=== PATIENT | female | born 1945 | race Caucasian/White ===

== ENCOUNTER → 2020-03-19 09:23 | Outpatient (CLI) | payer MEDICARE, SELFPAY ==
--- NOTE | ~2020-03-19 | DEXA_ITS ---
Bone Density Report Name: Abdelrahman Cochran Age: 74 Sex: Female Ethnicity: White Date of : 1945 Indication: postmenopausal; screening for osteoporosis; parental hip fracture; hysterectomy; Referring Provider: Roseann, Giovana Jalloh Study: Bone densitometry was performed. Exam Date: March 19, 2020 Accession number: [id number] Bone Density: Region BMD T-score Z-score Classification AP Spine (L1-L4) 1.143 0.9 3.3 Normal Femoral Neck (Left) 0.736 -1.0 1.1 Normal Total Hip (Left) 0.880 -0.5 1.3 Normal Femoral Neck (Right) 0.696 -1.4 0.7 Osteopenia Total Hip (Right) 0.843 -0.8 1.0 Normal Total Hip Mean 0.862 -0.7 1.2 Normal World Health Organization criteria for BMD impression classify patients as: Normal (T-score at or above -1.0), Osteopenia (T-score between -1.0 and -2.5), or Osteoporosis (T-score at or below -2.5). 10-year Fracture Risk(1): Major Osteoporotic Fracture 18% Hip Fracture 8.5% Reported Risk Factors: [place] (), Neck BMD=0.696, BMI=31.8, parental fracture (1) FRAX(R) Version 3.08. Fracture probability calculated for an untreated patient. Fracture probability may be lower if the patient has received treatment. Previous Exams: Region Exam Age BMD T-score BMD Change BMD Change Date g/cm2 vs Baseline vs Previous AP Spine(L1-L4) 03/19/2020 74 1.143 0.9 0.056 -0.031* 09/01/2017 71 1.175 1.2 0.087 0.046* 06/29/2014 68 1.129 0.7 0.042 0.016 05/03/2012 66 1.113 0.6 0.026 0.009 03/29/2010 64 1.104 0.5 0.017 0.036* 02/02/2008 62 1.068 0.2 -0.020 0.034* 01/28/2006 60 1.034 -0.1 -0.054 -0.054 01/15/2004 58 1.088 0.4 Total Hip(Left) 03/19/2020 74 0.880 -0.5 -0.072 -0.069* 09/01/2017 71 0.948 0.1 -0.003 -0.016 06/29/2014 68 0.964 0.2 0.013 0.007 05/03/2012 66 0.957 0.1 0.006 0.002 03/29/2010 64 0.955 0.1 0.004 0.020 02/02/2008 62 0.935 -0.1 -0.017 -0.020 01/28/2006 60 0.955 0.1 0.003 0.003 01/15/2004 58 0.952 0.1 Total Hip(Right) 03/19/2020 74 0.843 -0.8 -0.058 -0.032* 09/01/2017 71 0.875 -0.5 -0.026 -0.038* 06/29/2014 68 0.913 -0.2 0.012 0.013 05/03/2012 66 0.900 -0.3 -0.002 -0.029* 03/29/2010 64 0.929 -0.1 0.027 0.024 02/02/2008 62 0.904 -0.3 0.00
--- NOTE | ~2020-03-19 | MM_ITS ---
EXAMINATION: MM screening [facility] BI w erlin HISTORY: Screening mammogram TECHNIQUE: Craniocaudal and mediolateral oblique 3-D tomosynthesis images were obtained and synthetic 2-D images were generated. CAD analysis was submitted and interpreted. COMPARISON: 02/10/2018, 12/09/2016, 06/17/2016, 06/06/2016 BREAST PARENCHYMAL COMPOSITION: There are scattered areas of fibroglandular density. FINDINGS: There is no evidence of suspicious mass, calcification, or architectural distortion to sugg est malignancy in either breast. There has been no suspicious interval change. IMPRESSION: 1. No mammographic evidence of malignancy. 2. Recommend routine screening mammography in one year. BI-RADS Category 1: Negative Reviewed, dictated and finalized at location A.
== END ==
PROVIDERS: PCP Family Medicine; Visit Provider Nurse Practitioner Obstetrics & Gynecology
DX: Z12.31 Encounter for screening mammogram for malignant neoplasm of breast (principal); Z78.0 Asymptomatic menopausal state; M85.851 Other specified disorders of bone density and structure, right thigh
CPT/HCPCS: 77063; 77067; 77080

== ENCOUNTER 2020-07-27 09:27 | Emergency (ER) | payer MEDICARE, SELFPAY ==
--- NOTE | ~2020-07-27 | XR_ITS ---
EXAMINATION: XR chest 2V EXAM DATE: 07/27/2020 10:29 INDICATION: Cough and shortness of breath. COVID 19 positive. TECHNIQUE: Frontal and lateral projections of the chest obtained and reviewed. Comparison is made to prior examination from 11/04/2007. FINDINGS: There is moderate amount of bilateral mid and lower lung zone acute airspace disease, appea arabella is consistent with COVID pneumonia which is most likely diagnosis given history provided. There is no pneumothorax suspected. There are no pleural effusions. Cardiomediastinal silhouette is normal . IMPRESSION: Moderate amount of basilar COVID pneumonia. Reviewed, dictated and finalized at location B. E FILER
--- NOTE | 2020-07-27 09:30 | ED.GENADULT ---
HPI - General Adult General Chief complaint: Upper Respiratory Infection Stated complaint: Cough Time Seen by Provider: 07/27/20 09:30 Source: patient Mode of arrival: ambulatory Limitations: no limitations History of Present Illness HPI narrative: 74-year-old female patient presents to the [facility] with complaints of cold symptoms for the past 5 days. Patient states that she was exposed to Covid almost a week ago. Patient states she has not had a Covid test since being exposed. Patient states she has had a dry cough with some shortness of breath, some fatigue, and just overall not feeling well. Denies any fevers, body aches or chills. Patient states she did get a flu vaccine this season. Denies getting any cold vaccines yet. Patient states that she did call her doctor about her symptoms however they prescribed her a Z-Klever. Patient states that it caused her to have diarrhea so she stopped the Z-Klever and did not complete it. Patient states she has been taking cough drops for her cough but denies any other [id number] medications. Related Data Home Medications Medication Instructions Recorded Confirmed atorvastatin 10 mg PO DAILY 07/27/20 07/27/20 hydrochlorothiazide 25 mg PO DAILY 07/27/20 07/27/20 lisinopril 40 mg PO DAILY 07/27/20 07/27/20 meloxicam 7.5 mg PO DAILY 07/27/20 07/27/20 omeprazole 40 mg PO DAILY 07/27/20 07/27/20 Allergies Allergy/AdvReac Type Severity Reaction Status Date / Time ampicillin Allergy Severe CHEST Verified 07/27/20 09:39 PRESSURE Penicillins Allergy Severe DIAHRREA Verified 07/27/20 09:39 Review of Systems Review of Systems: Narrative: CONSTITUTIONAL: Denies fever, chills, or sweats. EYES: Denies visual changes, redness, or discharge. ENT: Denies rhinorrhea, congestion, sore throat, or otalgia. CARDIOVASCULAR: Denies chest pain, palpitations, or edema. RESPIRATORY: Positive cough with dyspnea. GASTROINTESTINAL: Denies abdominal pain, nausea, vomiting, or diarrhea. GENITOURINARY: Denies dysuria or hematuria. SKIN: Denies rash or itching. MUSCULOSKELETAL: Denies back pain, joint pain, or myalgia. NEUROLOGIC: Denies headache, numbness, or weakness. Positive fatigue PSYCHIATRIC: Denies anxiety or depression. [facility] Past Medical History Medical History (Updated 07/27/20 @ 10:52 by CK Eller) Arthritis GERD (gastroesophageal reflux disease) Hypercholesterolemia Hypertension Osteoporosis Seasonal allergies Surgical History Surgical History (Updated 07/27/20 @ 09:31 by CK Eller) History of appendectomy History of hysterectomy Hx of cholecystectomy Hx of tonsillectomy Social History Social History (Updated 07/27/20 @ 09:31 by CK Eller) Smoking status: Former smoker Gender identity (if verbalized by the patient): Female Comments At the time of my signature I agree with nursing past medical history, surgical, social, and family history. There is no relevant family history pertinent to the presenting complaint. Exam Narrative: Exam Narrative: GENERAL: Well-appearing, well-nourished, and in no acute distress. HEAD: Normocephalic, atraumatic. EYES: PERRLA and EOMI. ENT: Nares clear, no rhinorrhea or epistaxis. Mucous membranes moist. Bilateral TMs are clear no erythema or foreign bodies in the canal. NECK: Supple. No lymphadenopathy CHEST: Clear to auscultation. No respiratory distress. Patient able talk in clear complete sentences. HEART: Regular rate and rhythm. No murmur heard. Normal peripheral pulses. ABDOMEN: Soft, nontender, nondistended, normal active bowel sounds. EXTREMITIES: Normal range of motion. No edema. SKIN: Warm, dry, no rash. NEURO: No focal deficits. Alert and oriented x3. Course Reevaluation(s) Reevaluation #1: Reevaluated patient. Notified her that her Covid test is positive today for flu is negative. Her x-ray does show possible Covid pneumonia bilaterally. Discussed with patient that her plan of care
[2020-07-27 10:03] VITALS: BP 143/74; PULSE 86; RESP 20; TEMP 36.8; O2SAT 94
== END 2020-07-27 11:00 | disposition home or self-care (01) ==
PROVIDERS: Emergency Provider Nurse Practitioner Family; PCP Family Medicine
DX: U07.1 COVID-19 (principal); K21.9 Gastro-esophageal reflux disease without esophagitis; E78.00 Pure hypercholesterolemia, unspecified; I10 Essential (primary) hypertension; M81.0 Age-related osteoporosis without current pathological fracture; Z87.891 Personal history of nicotine dependence; M19.90 Unspecified osteoarthritis, unspecified site
CPT/HCPCS: 71046; 87426; 87804; 99213; C9803; G0463

== ENCOUNTER 2020-07-27 16:56 | Emergency (ER) | payer MEDICARE, SELFPAY ==
--- NOTE | ~2020-07-27 | XR_ITS ---
XR chest 1V portable 07/27/2020 18:28 Indication: Cough and body aches. Shortness of breath. Procedure: AP portable chest Comparison: Comparison to multiple prior studies sequentially, with oldest reviewed study dated 11/03. Findings: Patchy bilateral airspace disease, compatible with pneumonia. No pleural effusion or pneumo thorax. Heart size normal. No acute osseous abnormality. Impression: 1: Patchy bilateral airspace disease, compatible with pneumonia. Reviewed, dictated and finalized at location A. ERY STRIPER Impression: 1: Patchy bilateral airspace disease, compatible with pneumonia.
--- NOTE | ~2020-07-27 | NM_ITS ---
NM pulmonary perfusion INDICATION: Elevated d-dimer and shortness of breath TECHNIQUE: The patient inhaled aerosolized 4.4 mCi xenon-133. Multiple images were then acquired. COMPARISON: Chest x-ray dated 07/27/2020 FINDINGS: Comparison chest radiograph demonstrates patchy airspace disease of the mid and lower lungs , consistent with pneumonia. Perfusion images demonstrate no-moderate perfusion abnormalities of the mid and lower lungs corresponding to the areas of chest x-ray abnormality. IMPRESSION: 1: Small-moderate perfusion abnormalities of the mid and lower lungs corresponding to findings on [address] x-ray. Reviewed, dictated and finalized at location A. CAL RECEPTION IMPRESSION: 1: Small-moderate perfusion abnormalities of the mid and lower lungs correspond ing to findings on chest x-ray.
[2020-07-27 17:00] VITALS: BP 153/56; PULSE 92; RESP 18; TEMP 36.9; O2SAT 95
[2020-07-27 17:47] VITALS: O2SAT 94
--- NOTE | 2020-07-27 18:27 | PC.NURSE ---
Pt ambulated to restroom. Spo2 95% on room air
[2020-07-27 18:56] LABS: Hematocrit 29.2 % (37.0-47.0); Hemoglobin 9.9 g/dL (12.0-15.0); Mean Corpuscular HGB Conc 33.9 g/dl (32-36); Mean Corpuscular Hemoglobin 29.6 pg (26-34); Mean Corpuscular Volume 87.2 fl (80-100); Mean Platelet Volume 10.1 fl (7.4-10.4); Platelet Count Result 362 k/mm3 (150-375); Red Blood Count 3.35 M/mm3 (4.2-5.4); Red Cell Distribution Width 12.9 % (11.5-14.5); White Blood Count 4.2 K/mm3 (4.5-10.0)
[2020-07-27 19:00] VITALS: BP 154/88; PULSE 84; RESP 20; O2SAT 94
[2020-07-27 19:07] LABS: Alanine Aminotransferase 21 U/L (4-35); Albumin Level 3.9 g/dL (3.5-5.1); Alkaline Phosphatase 69 U/L (38-126); Anion Gap 10 mmol/L (8-16); Aspartate Amino Transferase 62 U/L (14-36); Bilirubin,Total 0.6 mg/dL (0.2-1.3); Blood Urea Nitrogen 44 mg/dL (7-17); Calcium 8.6 mg/dL (8.4-10.2); Carbon Dioxide 25 mmol/L (22-30); Chloride 93 mmol/L (98-107); Estimated CRCL calculation 25 ml/min; Estimated Glomerular Filt Rate 31; Glucose 149 mg/dL (65-105); Potassium 4.1 mmol/L (3.4-5.0); Sodium 128 mmol/L (137-145)
[2020-07-27 19:25] LABS: Band Neutrophils Percent 14 % (0-6); Lymphocytes Absolute Manual 0.08 K/mm3 (1.1-4.5); Monocytes Absolute Manual 0.08 K/mm3 (0.1-0.90); Monocytes Percent Manual 2 % (3-9); Neutrophils Absolute Manual 4.03 K/mm3 (1.7-7.2); Neutrophils Percent Manual 82 % (46-73); Total Cells Counted 100
[2020-07-27 19:26] LABS: Platelet Estimate Adequate (Adequate)
[2020-07-27 19:31] LABS: D Dimer 3.98 ug/mL (<0.48)
[2020-07-27 20:18] VITALS: BP 167/50; PULSE 87; RESP 18; O2SAT 96
--- NOTE | 2020-07-27 21:05 | ED.GENADULT ---
HPI - General Adult General Chief complaint: Upper Respiratory Infection Stated complaint: Covid+ weakness Time Seen by Provider: 07/27/20 17:31 Source: patient Mode of arrival: ambulatory Limitations: no limitations History of Present Illness HPI narrative: Patient presents with chief complaint of testing Covid positive today. Patient states that she has had symptoms for 3 days. Patient states originally she had fever and diarrhea, but that has resolved and she now does have some fatigue. She states her family member came over and put a pulse ox on her finger and it read in the 80s so they told her she had to come to the ER and be checked out. She states she has mild SOB with exertion, but nothing significant. She states she occasionally has coughing fits and that makes her feel short of breath. She denies chest pain. States she has been able to eat and drink normally. She denies any other concerns. Related Data Home Medications Medication Instructions Recorded Confirmed atorvastatin 10 mg PO DAILY 07/27/20 07/27/20 hydrochlorothiazide 25 mg PO DAILY 07/27/20 07/27/20 lisinopril 40 mg PO DAILY 07/27/20 07/27/20 meloxicam 7.5 mg PO DAILY 07/27/20 07/27/20 omeprazole 40 mg PO DAILY 07/27/20 07/27/20 Allergies Allergy/AdvReac Type Severity Reaction Status Date / Time ampicillin AdvReac Severe CHEST Verified 07/27/20 17:05 PRESSURE Penicillins AdvReac Severe DIAHRREA Verified 07/27/20 17:05 Review of Systems Review of Systems: Narrative: CONSTITUTIONAL: Denies fever, chills, or sweats. EYES: Denies visual changes, redness, or discharge. ENT: Denies rhinorrhea, congestion, sore throat, or otalgia. CARDIOVASCULAR: Denies chest pain, palpitations, or edema. RESPIRATORY: Reports occasional coughing fits and very minimal dyspnea GASTROINTESTINAL: Denies abdominal pain, nausea, vomiting, or diarrhea. GENITOURINARY: Denies dysuria or hematuria. SKIN: Denies rash or itching. MUSCULOSKELETAL: Denies back pain, joint pain, or myalgia. NEUROLOGIC: Denies headache, numbness, dizziness, or weakness. PSYCHIATRIC: Denies anxiety or depression. [facility] Past Medical History Medical History (Updated 07/27/20 @ 21:16 by Rodrigue Matthew PA-C) Arthritis GERD (gastroesophageal reflux disease) Hypercholesterolemia Hypertension Osteoporosis Seasonal allergies Surgical History Surgical History (Updated 07/27/20 @ 09:31 by CK Eller) History of appendectomy History of hysterectomy Hx of cholecystectomy Hx of tonsillectomy Social History Social History (Updated 07/27/20 @ 09:31 by CK Eller) Smoking status: Former smoker Gender identity (if verbalized by the patient): Male Exam Narrative: Exam Narrative: GENERAL: Well-appearing, well-nourished, and in no acute distress. HEAD: Normocephalic, atraumatic. EYES: PERRLA and EOMI. ENT: Bilateral TMs pearly dash nonbulging NECK: Supple. No adenopathy or masses. CHEST: Clear to auscultation. No respiratory distress. No wheezes rales or rhonchi. No tachypnea. HEART: Regular rate and rhythm. ABDOMEN: Soft, nontender, nondistended, normal active bowel sounds. EXTREMITIES: Normal range of motion. No edema. SKIN: Warm, dry, no rash. NEURO: No focal deficits. Alert and oriented x3. PSYCH: Normal mood and affect. Course Vital Signs Vital signs: Vital Signs Temperature 98.4 F 07/27/20 17:00 Pulse Rate 92 07/27/20 17:00 Respiratory Rate 18 07/27/20 17:00 Blood Pressure 153/56 H 07/27/20 17:00 Pulse Oximetry 95 07/27/20 17:00 Temperature 98.4 F 07/27/20 17:00 Pulse Rate 87 07/27/20 20:18 Respiratory Rate 18 07/27/20 20:18 Blood Pressure 167/50 H 07/27/20 20:18 Pulse Oximetry 96 07/27/20 20:18 Medical Decision Making MDM Narrative Medical decision making narrative: Patient has been sinus rhythm on the monitor. She has maintained o2 sat above 95% during her stay. She did not desat while ambulating and was able to w
== END 2020-07-27 22:08 | disposition home or self-care (01) ==
PROVIDERS: Physician Assistant; Emergency Provider Emergency Medicine; PCP Family Medicine
DX: U07.1 COVID-19 (principal); M19.90 Unspecified osteoarthritis, unspecified site; E78.00 Pure hypercholesterolemia, unspecified; I10 Essential (primary) hypertension; M81.0 Age-related osteoporosis without current pathological fracture; Z87.891 Personal history of nicotine dependence; R91.8 Other nonspecific abnormal finding of lung field
CPT/HCPCS: 36415; 71045; 71046; 78580; 80053; 85025; 85380; 87426; 87804; 99283; A9540; C9803

== ENCOUNTER 2023-05-28 09:35 | Outpatient (CLI) | payer MEDICARE, OTHER, SELFPAY ==
--- NOTE | 2023-05-28 | ECHO_ITS ---
Patient Info Name: Abdelrahman Cochran Age: 77 years : 1945 Gender: Female Ht: 61 in Wt: 157 lbs BSA: 1.78 m2 HR: 79 bpm BP: 175 / 63 mmHg Technical Quality: Fair Exam Date: 05/28/2023 9:55 AM Exam Location: Echo Lab Patient Status: Outpatient Admit Date: 05/28/2023 Staff Ordering Physician: Eli, Roxana Alfaro MD Solar Manufacturer'S Representative: Phyllis Fairbanks RDCS Attending Provider: Eli, Roxana Alfaro MD Referring Physician: Eli NESS; Exam Type: CA echo doppler color flow Study Info Indications R06.09 - Other forms of dyspnea Complete two-dimensional, color flow and Doppler transthoracic echocardiogram is performed. Summary 1. Complete two-dimensional, color flow and Doppler transthoracic echocardiogram is performed. 2. Left ventricular chamber dimension is normal. 3. Left ventricular systolic function is normal, estimated at 65-70%. 4. There is mildly increased left ventricular wall thickness. 5. The left ventricular diastolic function is grade I diastolic dysfunction. 6. Right ventricular systolic function is normal. 7. Left atrial chamber dimension is moderately enlarged. 8. The atrial septum is aneurysmal. 9. There is mild to moderate aortic valve regurgitation. 10. Dilated inferior vena cava with >50% collapse upon inspiration consistent with elevated right atrial pressure, 8 mmHg. Left Ventricle Left ventricular chamber dimension is normal. Left ventricular systolic function is normal, estimated at 65-70%. There is mildly increased left ventricular wall thickness. The left ventricular diastolic function is grade I diastolic dysfunction. Right Ventricle Right ventricular chamber dimension is normal. Right ventricular systolic function is normal. Left Atria Left atrial chamber dimension is moderately enlarged. Right Atria Right atrial chamber dimension is normal. Atrial Septum The atrial septum is aneurysmal. Aortic Valve The aortic valve is trileaflet. There is no aortic valve stenosis. There is mild to moderate aortic valve regurgitation. There is mild aortic valve calcification. Pulmonic Valve The pulmonic valve is not well visualized. Mitral Valve There is trace mitral valve regurgitation. Tricuspid Valve There is trace tricuspid valve regurgitation. Pericardium/Pleural There is no pericardial effusion. Inferior Vena Cava Dilated inferior vena cava with >50% collapse upon inspiration consistent with elevated right atrial pressure, 8 mmHg. Aorta The aortic root size at the sinus of Valsalva is normal. Left Ventricular Outflow Tract Name Value Normal LVOT 2D LVOT Diameter 1.9 cm LVOT Doppler LVOT Peak Gradient 5 mmHg LVOT Mean Gradient 3 mmHg LVOT VTI 29 cm LVOT VTI/AV VTI Ratio 0.7 LVOT Stroke Volume 78 ml LVOT CO 3.6 l/min LVOT CI 2.0 l/min/m2 Pulmonic Valve Name Value Normal
== END 2023-05-28 09:36 | disposition home or self-care (01) ==
PROVIDERS: PCP Family Medicine; Visit Provider Family Medicine
DX: I35.1 Nonrheumatic aortic (valve) insufficiency (principal); I51.7 Cardiomegaly; R93.1 Abnormal findings on diagnostic imaging of heart and coronary circulation
CPT/HCPCS: 93306

== ENCOUNTER → 2023-06-24 10:22 | Outpatient (CLI) | payer MEDICARE, OTHER, SELFPAY ==
--- NOTE | ~2023-06-24 | MM_ITS ---
EXAMINATION: MM screening [facility] BI w erlin HISTORY: Screening mammogram TECHNIQUE: Craniocaudal and mediolateral oblique 3-D tomosynthesis images were obtained and synthetic 2-D images were generated. CAD analysis was submitted and interpreted. COMPARISON: 03/19/2020, 02/10/2018 BREAST PARENCHYMAL COMPOSITION: There are scattered areas of fibroglandular density. FINDINGS: No suspicious mass, calcification, or architectural distortion are identified in either diamond ast to suggest malignancy. There has been no suspicious interval change. IMPRESSION: 1. No mammographic evidence of malignancy. 2. Recommend routine screening mammography in one year. BI-RADS Category 1: Negative Reviewed, dictated and finalized at location A. IAC/VASCULAR SONOGRAPHER
--- NOTE | ~2023-06-24 | DEXA_ITS ---
Bone Density Report Name: MARGOTH ELLER Age: 77 Sex: Female Ethnicity: White Date of : 1945 Indication: postmenopausal; screening for osteoporosis; parental hip fracture; height loss; hysterectomy; Referring Provider: SUZANNE, MOIRA Alfaro Study: Bone densitometry was performed. Exam Date: June 24, 2023 Accession number: [id number] Bone Density: Region BMD T-score Z-score Classification AP Spine (L1-L4) 1.135 0.8 3.4 Normal Femoral Neck (Left) 0.676 -1.6 0.7 Osteopenia Total Hip (Left) 0.865 -0.6 1.4 Normal Femoral Neck (Right) 0.772 -0.7 1.6 Normal Total Hip (Right) 0.822 -1.0 1.0 Normal Total Hip Mean 0.844 -0.8 1.2 Normal World Health Organization criteria for BMD impression classify patients as: Normal (T-score at or above -1.0), Osteopenia (T-score between -1.0 and -2.5), or Osteoporosis (T-score at or below -2.5). 10-year Fracture Risk(1): Major Osteoporotic Fracture 22% Hip Fracture 12% Reported Risk Factors: [place] (), Neck BMD=0.676, BMI=31.4, parental fracture (1) FRAX(R) Version 3.08. Fracture probability calculated for an untreated patient. Fracture probability may be lower if the patient has received treatment. Previous Exams: Region Exam Age BMD T-score BMD Change BMD Change Date g/cm2 vs Baseline vs Previous AP Spine(L1-L4) 06/24/2023 77 1.135 0.8 0.047 -0.009 03/19/2020 74 1.143 0.9 0.056 -0.031* 09/01/2017 71 1.175 1.2 0.087 0.046* 06/29/2014 68 1.129 0.7 0.042 0.016 05/03/2012 66 1.113 0.6 0.026 0.009 03/29/2010 64 1.104 0.5 0.017 0.036* 02/02/2008 62 1.068 0.2 -0.020 0.034* 01/28/2006 60 1.034 -0.1 -0.054 -0.054 01/15/2004 58 1.088 0.4 Total Hip(Left) 06/24/2023 77 0.865 -0.6 -0.087 -0.015 03/19/2020 74 0.880 -0.5 -0.072 -0.069* 09/01/2017 71 0.948 0.1 -0.003 -0.016 06/29/2014 68 0.964 0.2 0.013 0.007 05/03/2012 66 0.957 0.1 0.006 0.002 03/29/2010 64 0.955 0.1 0.004 0.020 02/02/2008 62 0.935 -0.1 -0.017 -0.020 01/28/2006 60 0.955 0.1 0.003 0.003 01/15/2004 58 0.952 0.1 Total Hip(Right) 06/24/2023 77 0.822 -1.0 -0.080 -0.021 03/19/2020 74 0.843 -0.8 -0.058 -0.032* 09/01/2017 71 0.875 -0.5 -0.026 -0.038* 06/29/2014 68 0.913 -0.2
== END ==
PROVIDERS: PCP Family Medicine; Visit Provider Family Medicine
DX: Z12.31 Encounter for screening mammogram for malignant neoplasm of breast (principal); M85.88 Other specified disorders of bone density and structure, other site; Z78.0 Asymptomatic menopausal state
CPT/HCPCS: 77063; 77067; 77080

== ENCOUNTER 2025-03-17 14:07 | Outpatient (CLI) | payer MEDICARE, OTHER, SELFPAY ==
--- OUTSIDE RECORDS SUMMARY | 2025-03-17 14:15 | XMS_ITS | Clinical Summary ---
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 Gender Identity Not on file Sexual Orientation Not on file Plan of Treatment Health Maintenance Due Date Last Done Comments Hepatitis C Virus (HCV) Screening 1945 TdaP Immunization 1945 Zoster Immunization (1 of 2) 1994 Pneumococcal Immunization (50+ years) (2 of 2 - PCV20 or PCV21) 03/21/2016 03/21/2015 Respiratory Syncytial Virus (RSV) Immunization (Adult) (1 - 1-dose 75+ series) 09/07/2019 SARS-COV-2 Immunization ( - season) 2024 03/25/2021, 08/31/2020, 08/10/2020 Influenza Immunization (#1) 02/20/202501/20, 03/04/2019, 03/08/2018, Additional history exists Pneumococcal Immunization Combined Discontinued 03/21/2015 Hepatitis B Immunization Aged Out No longer eligible based on patient's age to complete this topic Human Papillomavirus (HPV) Immunization Aged Out No longer eligible based on patient's age to complete this topic Meningococcal Immunization (ACWY) Aged Out No longer eligible based on patient's age to complete this topic Rotavirus Immunization Aged Out No lo nger eligible based on patient's age to complete this topic
--- OUTSIDE RECORDS SUMMARY | 2025-03-17 14:15 | XMS_ITS | Clinical Summary ---
Author Organization [facility] Address [facility] [place] [address] Care Team Providers Care Unix Administrator Name Role Phone Jeanine Ochoa Angelina MYERS Primary Care Provider + [phone] Allergies Active Allergy Reactions Criticality Noted Date Comments Ampicillin Diarrhea 12/08/2024 Penicillins Anaphylaxis High 12/08/2024 Medications solifenacin (VESICARE) 5 MG tablet Take 1 tablet (5 mg total) by mouth 2 (two) times a day. Active meloxicam (MOBIC) 15 MG tablet Take 1 tablet (15 mg total) by mouth daily. Active lisinopril (PRINIVIL) 40 MG tablet Take 1 tablet (40 mg total) by mouth daily. Active atorvastatin (LIPITOR) 20 MG tablet Take 1 tablet (20 mg total) by mouth nightly at bedtime. Active omeprazole (PRILOSEC) 40 MG capsule Take 1 capsule (40 mg total) by mouth daily. Active traMADol (ULTRAM) 50 MG tablet Take 1 tablet (50 mg total) by mouth every 6 (six) hours as needed for Pain. Active amLODIPine (NORVASC) 10 MG tablet Take 1 tablet (10 mg total) by mouth daily. 30 tablet 12/13/2024 Active Active Problems Problem Noted Date Diagnosed Date UTI (urinary tract infection) 12/08/2024 Social History Tobacco Use Types Packs/Day Years Used Date Smoking Tobacco: Never Smokeless Tobacco: Never Tobacco Cessation:Counseling Given: Not Answered [facility] Utilities Answer Date Recorded In the past 12 months has th e electric, gas, oil, or water company threatened to shut off services in your home? No 12/08/2024 Humiliation, Afraid, Rape, and Kick questionnair e Answer Date Recorded Within the last year, have y ou been afraid of your partner or ex-partner? No 12/08/2024 Within the last year, have y ou been humiliated or emotionally abused in other ways by your partner or ex-partner? No Within the last year, have y ou been kicked, hit, slapped, or otherwise physically hurt by your partner or ex-partner? No 12/08/2024 Within the last year, have y ou been raped or forced to have any kind of sexual activity by your partner or ex-partner? No 12/08/2024 Overall Financial Resource Strain (CARDIA) Answe r Date Recorded How hard is it for you to pa y for the very basics like food, housing, medical care, and heating? Not very hard 12/08/2024 Hunger Vital Sign Answer Date Recorded Within the past 12 months, y ou worried that your food would run out before you got the money to buy more. Never true 12/09/19 25 Within the past 12 months, t he food you bought just didn't last and you didn't have money to get more. Never true 12/08/2024 PRAPARE - Transportation Answer Date Re corded In the past 12 months, has l ack of transportation kept you from medical appointments or from getting medications? No 11/20 In the past 12 months, has l ack of transportation kept you from meetings, work, or from getting things needed for daily living? No 12/08/2024 Housing Stability Vital Sign Answer Musa e Recorded In the last 12 months, was t here a time when you were not able to pay the mortgage or rent on time? No 12/08/2024 In the past 12 months, how m any times have you moved where you were living? 0 12/08/2024 At any time in the past 12 m [facility], were you homeless or living in a group home (including now)? No 12/08/2024 Comments Unknown Sex and Gender Information Value Date Recorded Sex Assigned at Female 12/08/2024 12:49 PM CDT Legal Sex Female 12:36 PM CDT Gender Identity Not on file Sexual Orientation Not on file Last Filed Vital Signs Vital Sign Reading Time Taken Comments Blood Pressure 147/78 12/12/2024 7:48 AM CDT Pulse 91 12/12/2024 7:48 AM CDT Temperature 36.5 C (97.7 F) 12/12/2024 7:48 AM CDT Respiratory Rate 16 12/12/2024 7:48 AM CDT Oxygen Saturation 100% 12/12/2024 7:48 AM CDT Inhaled Oxygen Concentration - - Weight 68.5 kg (151 lb 0.2 oz) 12/12/2024 3:39 A M CDT Height 172.7 cm (5' 8) 12/08/2024 12:40 PM CDT Body Mass Index 22.96 12/08/2024 12:40 PM CDT Plan of Treatment Health Maintenance Due Date Last Done Comments Annual Medicare Wellness Visit 2009 Dexa Scan (General) 2009 Zoster Vaccines (3 of 3) 02/06/2024 12/12/2023, 10/20 COVID-19 Vaccine ( - season) 2025 03/10/2023, 03/11/2022, 03/25/2021, Additional history exists DTaP, Tdap and Td Vaccines (2 - Td or Tdap) 03/10/2032 03/10/2022 RSV Immunization or 60+ Years Completed 03/10/2023 Pneumococcal Vaccine: 50+ Years Completed 11/29/2024, 03/21/2015, 04/12/2010 Meningococcal B Vaccine Aged Out No l onger eligible based on patient's age to complete this topic Meningococcal Vaccine Aged Out No terence joan eligible based on patient's age to complete this topic RSV Immunizations Under 20 Months Aged Out No longer eligible based on patient's age to complete this topic Insurance MEDICARE [facility] Advance Directives * Full Code (Latest Code Status on File) Date Activated Date Inactivated Comments 12/08/2024 4:28 PM 12/12/2024 1:14 PM Care Teams Unix Administrator Relationship Specialty Start Date End Date Jeanine Ochoa NP [address] [place] [address] PCP - General FAMILY PRACTICE 12/08/24
--- OUTSIDE RECORDS SUMMARY | 2025-03-17 14:15 | XMS_ITS | Data Portability ---
Author Organization [facility] Address [address] [place] [place] [address] Assessment Encounter Date Assessment Date Assessment LastModified by Organization Details LastModified Time 02/13/2020 02/13/2020 Annual gynecological exam performed. Patient will come back in a year unless there are new symptoms. [email or web address] Not available 02/13/2020 09:33:54 Plan of Treatment Reminders Order Date Submit Date Provider Last Modified By Organization Details Last Modified Time Details Appointments None recorded. Lab None recorded. Referral None recorded. Procedures None recorded. Surgeries None recorded. Imaging DEXA, axial skeleton + vertebral fracture assessment 2019 020 [facility], [address], [place] [address], [place], [address], 0 14:23:10 Medication Orders triamcinol one acetonide 0.1 % topical ointment 2019 020 INTERFACE [id number], [address], [place], [place], [id number], 0 09:58:34 Patient TargetsNo targets recorded. Patient Instructions Encounter Date Encounter Id Patient Instructions Last Modified By Organization Details Last Modified Time 02/13/2020 [id number] [email or web address] Not available 10:16:59 Reason for Referral None Reported. Results Created Date Observation Date Name Description Value Unit Range Abnormal Flag Note LastModifiedBy Organization Detail LastModifiedTime 03/19/20 20 03/19/2020 MAMMO , scree juan, bilat eral No observ ation record ed. [facility] [address], [place], [address], 03/20/2020 17:29:07 03/26/20 20 03/19/2020 DEXA, axial skele ton + verte bral fract ure asses sment No observ ation record ed. [facility] [address], [place], [address], 03/28/2020 16:50:18 Result Notes None recorded. Problems Name Problem SNOMED Code Status Onset Date Resolution Date Notes Provider Name and Address Organization Details Recorded Time Vaginitis and vulvovagi nitis Active 2010 Vaginitis; Recorded Elsewhere: No Locatio n: [facility]: EHR Chroni c: N Practice ID: 0001 Billa ble Time: 10:30:00 AM Not Available [facility] 0 18:22:12 Specializ ed medical examinati on Active 2010 Gynecologi cristobal Examinatio n;Recorded Elsewhere: No Locatio n: [facility]: EHR Chroni c: N Practice ID: 0001 Billa ble Time: 10:30:00 AM Not Available [facility] 0 18:22:12 Adult health examinati on Active 2010 Routine Medical Exam;Recor ded Elsewhere: No Locatio n: [facility]: EHR Chroni c: N Practice ID: 0001 Billa ble Time: 10:30:00 AM Not Available [facility] 0 18:22:13 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;Pankaj rded Elsewhere: No Locatio n: [facility]: EHR Chroni c: N Practice ID: 0001 Billa ble Time: 09:00:00 AM Not Available [facility] 0 18:22:12 Menopausa l symptom 41700795 Active 2013 Menopausal symptoms;R ecorded Elsewhere: No Locatio n: [facility]: EHR Chroni c: N Practice ID: 0001 Billa ble Time: 08:30:00 AM Not Available [facility] 0 18:22:12 Acute vaginitis 88226464 Active 2015 Acute vulvovagin itis;Recor ded Elsewhere: No Locatio n: [facility]: EHR Chroni c: N Practice ID: 0001 Billa ble Time: 08:30:00 AM Not Available [facility] 0 18:22:[address] Concept Active 2015 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) (routine) w/o abn findings;R ecorded Elsewhere: No Locatio n: [facility]: EHR Chroni c: N Practice ID: 0001 Billa ble Time: 08:30:00 AM Not Available [facility] 0 18:22:12 Evaluatio n finding Active 2015 Oth abn and inconclusi ve findings on dx imaging of breast;Rec orded Elsewhere: No Locatio n: [facility]: EHR Chroni c: N Practice ID: 0001 Billa ble Time: 08:45:00 AM Not Available [facility] 0 18:22:13 Menopause present 759089561 Active 2016 Menopausal and female climacteri c states;Rec orded Elsewhere: No Locatio n: [facility]: EHR Chroni c: N Practice ID: 0001 Billa ble Time: 08:30:00 AM Not Available [facility] 0 18:22:12 Acute vulvitis 19642549 Active 2017 Vulvitis;R ecorded Elsewhere: No Locatio n: [facility]: EHR Chroni c: N Practice ID: 0001 Billa ble Time: 08:30:00 AM Not Available [facility] 0 18:22:12 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, soft tissue, and skin;Recor ded Elsewhere: No Locatio n: [facility]: EHR Chroni c: N Practice ID: 0001 Billa ble Time: 03:45:00 PM Not Available [facility] 0 18:22:12 Keratoma Active 2017 Epidermal thickening , unspecifie d;Practice ID: 0001 Not Available [facility] 0 18:22:15 Screening for malignant neoplasm of rectum Active 2018 Encounter for screening for malignant neoplasm of rectum;Rec orded Elsewhere: No Locatio n: [facility]: EHR Chroni c: N Practice ID: 0001 Billa ble Time: 09:15:00 AM Not Available [facility] 0 18:22:12 Screening for malignant neoplasm of cervix Active 2018 Encounter for screening for malignant neoplasm of cervix;Rec orded Elsewhere: No Locatio n: [facility]: EHR Chroni c: N Practice ID: 0001 Billa ble Time: 09:15:00 AM Not Available [facility] 0 18:22:[address] Concept Active 2018 Encntr for general adult medical exam w/o abnormal findings;R ecorded Elsewhere: No Locatio n: [facility]: EHR Chroni c: N Practice ID: 0001 Billa ble Time: 09:15:00 AM Not Available [facility] 0 18:22:12 Finding of urine substance level Active 2018 Proteinuri a, unspecifie d;Practice ID: 0001 Not Available [facility] 0 18:22:[address] Concept Active 2018 Encounter for general adult medical exam w abnormal findings;P ractice ID: 0001 Not Available [facility] 0 18:22:15 Problem Notes None recorded. Procedures Surgical History Date Name Laterality Status Provider Name and Address Organization Details Recorded Time Hernia repair w/mesh completed [facility] 02/13/2020 09:35:30 Total Hysterectomy completed [facility] 02/13/2020 09:35:37 Cholecystectomy completed [facility] 02/13/2020 09:35:42 Imaging Results None recorded. Procedure Notes None recorded. Medical Equipment None Reported. Allergies Allergen ID Allergen Name Allergen Category Reaction Reaction Severity Criticality Documentation Date Start Date Code Code System Note Provider Name and Address Organization Details Recorded Time 54195 Product containin g penicilli n (product) medicatio n hives Not available Not available 06/08/2020 94040 8001 SNOMED React ion: hives ; Comme nt: [facility]; Not Available [facility] 0 14:20:40 1782 ampicilli n medicatio n Not available Not available Not available 02/13/2020 733 RxNorm Naomi Mayer [place], [place] - [facility] 0 09:34:09 Medications Name Sig Start Date Stop Date Status Note LastModified by Organization Details LastModified Time cyclobenz aprine 10 mg tablet 02/12 completed Not Available Not Available Not Available atorvasta tin 80 mg tablet take 1 tablet by oral route every day active Prescrib ed Elsewher e: Yes Loca tion: [facility] odify By: denis White ncounter DateTime : 05/05/20 16 08:30:00 AM Not Available Not Available Not Available prednison e 10 mg tablet active Not Available Not Available Not Available atorvasta tin 10 mg tablet active Not Available Not Available Not Available azithromy mariposa 250 mg tablet take 2 tablet (500MG) by oral route every day for 1 day then 1 tablet (250 mg) by oral route once daily for 4 days 02/12 completed Not Available Not Available Not Available Lotrisone 1 %-0.05 % topical cream apply by topical route 2 times every day for 2 weeks to the affected and surround ing areas of skin in the morning and evening 05/17 completed Prescrib ed Elsewher e: No Locat ion: [facility] odify By: ade Ceeou nter DateTime : 05/04/20 13 09:30:00 AM Not Available Not Available Not Available clobetaso l 0.05 % topical cream apply by topical route every day a thin layer to the affected area(s) 04/30 completed Prescrib ed Elsewher e: No Locat ion: [facility] odify By: ade Rapp nter DateTime : 05/05/20 16 08:30:00 AM Not Available Not Available Not Available acetamino phen 300 mg-codein e 30 mg tablet 02/12 completed Not Available Not Available Not Available sulfameth oxazole 800 mg-trimet hoprim 160 mg tablet take 1 tablet by oral route every 12 hours 02/12 completed Not Available Not Available Not Available omeprazol e 40 mg capsule,d elayed release active Not Available Not Available Not Available Macrobid 100 mg capsule take 1 capsule by oral route every 12 hours with food 2018 active Prescrib ed Elsewher e: No Locat ion: [facility] odify By: nupur plazauntgianluca DateTime : 07/26/19 19 10:53:50 AM Not Available Not Available Not Available Metrogel Vaginal 0.75 % (37.5 mg/5 gram) insert 1 applicat orful (37.5MG) by vaginal route every day at bedtime 05/31 completed Prescrib ed Elsewher e: No Locat ion: [facility] odify By: deny taylor DateTime : 07/02/19 13 03:50:06 PM Not Available Not Available Not Available omeprazol e 10 mg capsule,d elayed release take 2 capsule by oral route every day before a meal 05/05 completed Prescrib ed Elsewher e: Yes Loca tion: [facility] odify By: denis wasserman DateTime : 04/22/20 11 10:30:00 AM Not Available Not Available Not Available betametha sone valerate 0.1 % topical cream apply by topical route every day a thin layer to the affected area(s) 05/31 completed Prescrib ed Elsewher e: No Locat ion: [facility] odify By: ade Rapp nter DateTime : 06/29/19 13 02:45:00 PM Not Available Not Available Not Available cephalexi n 500 mg capsule 02/12 completed Not Available Not Available Not Available Dyrenium 50 mg capsule take 1 capsule by oral route every day after a meal 04/30 completed Prescrib ed Elsewher e: Yes Loca tion: [facility] odify By: denis wasserman DateTime : 05/04/20 13 09:30:00 AM Not Available Not Available Not Available triamcino lone acetonide 0.1 % topical ointment APPLY A THIN LAYER TO THE AFFECTED AREA(S) BY TOPICAL ROUTE 2 TIMES PER DAY as needed 2019 active Not Available Not Available Not Avai lable hydrochlo rothiazid e 12.5 mg capsule take 2 capsule by oral route every day 10/26 completed Prescrib ed Elsewher e: Yes Loca tion: [facility] white [facility] odify By: denis wasserman DateTime : 04/30/20 17 08:30:00 AM Not Available Not Available Not Available omeprazol e 20 mg capsule,d elayed release take 1 capsule by oral route every day before a meal active Prescrib ed Elsewher e: Yes Loca tion: [facility] odify By: denis wasserman DateTime : 10/27/19 18 11:15:00 AM Not Available Not Available Not Available lisinopri l 20 mg-hydroc hlorothia zide 25 mg tablet active Not Available Not Available No t Available diclofena c sodium 75 mg tablet,de layed release active Not Available Not Available Not Available acyclovir 200 mg capsule 02/12 completed Not Available Not Available Not Available estradiol 0.5 mg tablet take 1 tablet by oral route every day 07/20 completed Prescrib ed Elsewher e: No Locat ion: [facility] odify By: ade tz Encou nter DateTime : 05/05/20 17 10:06:56 AM Not Available Not Available Not Available lisinopri l 10 mg-hydroc hlorothia zide 12.5 mg tablet take 1 tablet by oral route every day active Prescrib ed Elsewher e: Yes Loca tion: [facility] odify By: denis wasserman DateTime : 10/27/19 18 11:15:00 AM Not Available Not Available Not Available lisinopri l 2.5 mg tablet take 1 tablet by oral route every day 05/04 completed Prescrib ed Elsewher e: Yes Loca tion: [facility] odify By: deny taylor DateTime : 04/22/20 11 10:30:00 AM Not Available Not Available Not Available Premarin 0.625 mg/gram vaginal cream insert (1G) by vaginal route every day once daily 05/04 completed Prescrib ed Elsewher e: No Locat ion: [facility] odify By: deny taylor DateTime : 05/31/20 13 08:30:00 AM Not Available Not Available Not Available Centrum active Not Available Not Avail able Not Available meloxicam 7.5 mg/5 mL oral suspensio n take 5 millilit er by oral route every day 05/05 completed Prescrib ed Elsewher e: Yes Loca tion: [facility] odify By: denis wasserman DateTime : 05/04/20 13 09:30:00 AM Not Available Not Available Not Available diclofena c 1.5 % topical drops apply 40 drop by topical route 4 times every day to the affected knee(s) active Prescrib ed Elsewher e: Yes Loca tion: [facility] odify By: denis plazaunter DateTime : 05/05/20 16 08:30:00 AM Not Available Not Available Not Available Trianex 0.05 % topical ointment apply by topical route 2 times every day a thin layer to the affected area(s) 2018 active Prescrib ed Elsewher e: No Locat ion: [facility] odify By: ade tz Encou nter DateTime : 07/20/19 19 09:15:00 AM Not Available Not Available Not Available Vitals Date Recorded Systolic And Diastolic Provider Name and Address Organization Details Last Updated DateTime 02/13/2020 132/82 mm[Hg] Giovana Whitfield, [place] [address], [place], [address], [place] - [facility] 02/13/2020 10:18:17 Date Recorded Body height Body mass index (BMI) Body weight Provider Name and Address Organization Details Last Updated DateTime 02/13/2020 152.4 cm 32 kg/m2 83070.15 g Naomi MARQUEZ - M [facility] 02/13/2020 09:44:52 Social History None recorded. Functional Status None recorded. Mental Status None recorded. Family History Relationship Description Onset Age of this Age Resolved Age Notes LastModified by Organization Details LastModified Time Unspecified Relation Family history of malignant neoplasm [email or web address] Not available 2019 09:35:00 Father Toxic emphysema [email or web address] Not available 2019 09:35:15 Mother Parkinson's disease [email or web address] Not available 2019 09:35:23 Notes:Family history of Canc er Father: Emphysema Mother: Parkinson's disease Medical History Condition Response Endometriosis Y Gynecological History Statement/Question Response Current Control Method None Obstetrics History GPAL:G 0 P 0 0 0 0 Past Encounters Encounter ID Performer Location Encounter Start Date Encounter Closed Date Diagnosis/Indication Diagnosis SNOMED-CT Code Diagnosis ICD10 Code Diagnosis IMO Codes Diagnosis Note [id number] [address] [address] 02/13/2020 09:21:08 02/13/2020 10:22:27 Gynecologic examination 61712745 Z01.419 Take Calcium with Vitamin D 12-1500mg daily. Do monthly self breast exams. It is advised to get annual flu shot in the fall and she could obtain at [facility] or [facility] clinic. If you haven't received the Tdap vaccine in the last 10 years you should obtain one as well. Have mammogram yearly, bone density every 2-3 years and colonoscop y every 5-10 years depending on findings and history. Engage in daily exercise of low impact aerobic exercise 45-60 minutes 4-5 times weekly. Avoid tobacco and illicit drugs as well as using moderation with alcohol intake less than 1-2 8 oz beverages daily. This lifestyle behavior pattern will lead to less health conditions and longer life span. If BMI greater than 25 weight watchers or dietary consult advised. Questions have been answered. Patient appears to understand instructio ns, but if you have any further questions call or respond to this email Option to see PCP yearly for breast exam/Mammo /Dexa since pap d/c unless otherwise indicated. Screening for osteoporosis 402405676 Z13.820 Postmenopausal state 764 82988 Z78.0 Health Concerns Section Related Observation LastModified by Organization Detai ls LastModified Time None Recorded Concern Status LastModified by Organization Details LastModified Time None Recorded Advance Directives Directive None Recorded Payers Insurance Date Sequence Insurance Name Policy Number Policy Dean Covered Member ID Dean Member ID Guarantor Name 08/20/2020 1 [place] Abdelrahman Odomidge [id number] Abdelrahman [place] 02/13/2020 2 [facility]MEDIC[facility] SUPPLEMENT) Abdelrahman MedinaDimas [id number] Abdelrahman [place] Notes Date Note Type Note Provider Name and Address Organization Details Recorded Time 0 text/html Annual GYNReported by PatientHistoryFor history, patient reportsno gynecologic complaints.Genitourina ry symptomsFor menstrual cycle, patient reportsnormal menses. For urinary symptoms, patient reportsno hematuriaandno incontinence. For vulva, patient reportsno genital lesion. For vagina, patient reportsnormal vaginal discharge.Breast symptomsFor breast, patient reportsno breast pain,no breast lump, andno nipple discharge.Contraceptio nFor current contraception, (postmenopause).Endocr ine symptomsFor sexual complaints, patient reportsno sexual complaints,no pain during intercourse, andnormal libido. For menopausal symptoms, patient reportsno menopausal symptomsandnormal vaginal lubrication.Psychologi cristobal symptomsFor psychological symptoms, patient reportsno depression,no anxiety, andno pmdd.Preventative measuresFor preventive measures, patient reportsencourage self breast examination,encourage regular exercise,encourage no tobacco use,encourage regular mammograms starting age 40,needs to schedule mammogram, andup to date on colonoscopy screening(dexa 2018). Giovana Whitfield, NP-BC [address], [place], [address], [facility] 02/13/2020 10:18:21 OBGyn Episode Ob Episode Information Episode Created Date Number of Fetuses Patient Bloodtype Patient rh Status Prepregnancy Weight lbs Domestic Partner Domestic Partner Phone Father Name Form Grader Status 02/13/20 20 1 CLOSED Fetus Data First Name Last Name Admitted to NICU Weight (g) Sex Living Outcome Pediatric Complications Fetus ID Race Codes Race Delivery Type [id number] Vaginal Delivery Aaron Calculation Initial Aaron Date Initial Exam Date Initial Exam Provider Initial Ultrasound Date Last Menstrual Period Date Ultra Sound Weeks Gestation 0 Eighteen To Twenty Week Aaron Update Ultra Sound Date Fundal Height At Umbil Quickening Date Ultra Sound Latest Weeks Gestation Final Aaron Confirmed By Final Aaron Confirmed Date Final Aaron Date Ultra Sound Latest Days Gestation 0 0 Menstrual History Last Menstrual Date Menses Monthly On Bcp Conception Prior Menses Frequency Hcg Plus Date Menarche Onset Age Delivery Information Delivery Date Delivery Type Labor Anesthesia Weeks Gestation Incision Type Labor Labor Length Hrs Delivered By Post Complications Tubal Sterilization Discharge Date Comments 3 Discharge Information Feeding Method Contraceptive Method Maternal HG B and HCT Levels Ob Episode Information Episode Created Date Number of Fetuses Patient Bloodtype Patient rh Status Prepregnancy Weight lbs Domestic Partner Domestic Partner Phone Father Name Form Grader Status 02/13/20 20 1 CLOSED Fetus Data First Name Last Name Admitted to NICU Weight (g) Sex Living Outcome Pediatric Complications Fetus ID Race Codes Race Delivery Type [id number] Vaginal Delivery Aaron Calculation Initial Aaron Date Initial Exam Date Initial Exam Provider Initial Ultrasound Date Last Menstrual Period Date Ultra Sound Weeks Gestation 0 Eighteen To Twenty Week Aaron Update Ultra Sound Date Fundal Height At Umbil Quickening Date Ultra Sound Latest Weeks Gestation Final Aaron Confirmed By Final Aaron Confirmed Date Final Aaron Date Ultra Sound Latest Days Gestation 0 0 Menstrual History Last Menstrual Date Menses Monthly On Bcp Conception Prior Menses Frequency Hcg Plus Date Menarche Onset Age Delivery Information Delivery Date Delivery Type Labor Anesthesia Weeks Gestation Incision Type Labor Labor Length Hrs Delivered By Post Complications Tubal Sterilization Discharge Date Comments 1 Discharge Information Feeding Method Contraceptive Method Maternal HG B and HCT Levels
--- NOTE | 2025-03-17 15:14 | ECG_ITS ---
Test Date: 2025-03-17 15:26:10 Measurements Intervals Hoffman Rate: 95 P: 0 VT: 0 QRS: 16 QRSD: 139 T: 8 QT: 360 QTc: 454 Interpretive Statements ATRIAL FIBRILLATION RIGHT BUNDLE BRANCH BLOCK [120+ ms QRS DURATION, UPRIGHT V1, 40+ ms S IN I/aVL/V4/V5/V6] No previous ECG available for comparison Electronically Signed On 03-17-2025 20:00:15 CDT by Alfa Wilhelm M.D.
[2025-03-17 15:52] LABS: Hematocrit 35.3 % (37.0-47.0); Hemoglobin 11.2 g/dL (12.0-15.0); Immature Granulocyte Percent A 0.3 % (0-0.5); Lymphocytes Absolute Auto 1.05 K/mm3 (0.9-3.2); Mean Corpuscular HGB Conc 31.7 g/dl (32-36); Mean Corpuscular Hemoglobin 29.6 pg (26-34); Mean Corpuscular Volume 93.4 fl (80-100); Nucleated Red Blood Cells Absolute Auto 0.000 K/mm3 (0.0-0.012); Nucleated Red Blood Cells Perc 0.0 % (0.0-0.2); Platelet Count Result 400 k/mm3 (150-375); Red Blood Count 3.78 M/mm3 (4.2-5.4); White Blood Count 8.8 K/mm3 (4.5-10.0)
[2025-03-17 16:01] LABS: Hemoglobin A1C 5.4 % (<5.7)
[2025-03-17 16:03] LABS: Albumin Level 4.8 g/dL (3.5-5.1)
[2025-03-17 16:06] LABS: Anion Gap 9 mmol/L (4-12); Blood Urea Nitrogen 26 mg/dL (7-17); Calcium 9.5 mg/dL (8.4-10.2); Carbon Dioxide 28 mmol/L (22-30); Chloride 99 mmol/L (98-107); Estimated Glomerular Filt Rate 46; Glucose 96 mg/dL (65-110); Potassium 4.3 mmol/L (3.4-5.0); Sodium 136 mmol/L (137-145)
[2025-03-17 17:03] LABS: MRSA (PCR) NOT DETECTED (NOT DETECTE)
== END 2025-03-17 14:08 | disposition home or self-care (01) ==
LOC: ANHSURGERY 14:13
PROVIDERS: Anesthesiology; PCP Nurse Practitioner Family; Visit Provider Orthopaedic Surgery
DX: Z01.818 Encounter for other preprocedural examination (principal); M16.11 Unilateral primary osteoarthritis, right hip; R94.31 Abnormal electrocardiogram [ECG] [EKG]; I48.91 Unspecified atrial fibrillation; I45.10 Unspecified right bundle-branch block; I10 Essential (primary) hypertension
CPT/HCPCS: 36415; 80048; 80307; 82040; 83036; 85025; 86850; 86900; 86901; 87641; 93005

== ENCOUNTER 2025-03-23 10:15 | Inpatient (IN) | payer MEDICARE, OTHER, SELFPAY ==
--- NOTE | 2025-03-17 14:12 | PC.NURSE ---
[facility] has started construction of its new state of the art ER which will open Spring 2026. With this, we anticipate parking may be a challenge for some our surgical patients and families. Parking spaces are limited but are available for all Surgical, obstetrics, and ER patients sharing this lot. If you arrive and find you are having a hard time finding a parking space, please note that we understand the challenges, please drive around the hospital and park near Hospital Entrance 1. When you enter this entrance, you can ask a volunteer to direct or take you back to the surgical waiting area to check in. We appreciate everyone?s understanding of these expected challenges while we build for your future. Report to the Outpatient Waiting Room, entrance under the green pavilion located off [address], at time _6 AM on date __03/22/25 . Planned Procedure Time: __7:30 AM .? Time changes happen often and if your time is changed the preop area will call you the afternoon before. - You and your visitor will be asked to self-screen and do not enter if you have any COVID symptoms. Please call surgeon if you need to reschedule. - A mask is optional within the hospital at this time. Patients may have clear liquids (water, carbonated beverages, clear teas, apple juice) until 3 hours prior to surgery ( 4:30 AM) with a maximum of 20 ounces. - No food from midnight until time of surgery and no smoking, or chewing tobacco (or any form of nicotine). No chewing gum, candy or mints. - Take only the following medications with a SIP of water on the morning of surgery: NONE DO NOT STOP ANY OF YOUR OTHER PRESCRIPTION MEDICATIONS PRIOR TO SURGERY EXCEPT THE FOLLOWING Hold all vitamins and supplements for 3 days per anesthesiologist.LAST DOSE 03/18/25 Medications to discontinue per physician MELOXICAM PER DR CHOE Date to take last dose Please no make-up, nail spanish, hairspray, perfume, deodorant, or body powder the day of surgery.? No jewelry (including any body piercings) or valuables the day of surgery, leave them at home.? Please take a shower or bath the night before, or the morning of, surgery with an antibacterial soap.? Wear comfortable, loose fitting clothing.? Children are encouraged to wear pajamas. - Jewelry must be removed prior to entering the operating room.? Rings and piercings that are not removed may be cut off. - The hospital will not accept responsibility for valuables.? - Please leave all valuables, including medications, at home the day of surgery. If you are going home after surgery, a licensed lifter driver must drive you home.? - NO public transportation without another adult if you receive anesthesia. - We recommend that an adult stay with you for 24 hours following discharge. - We also recommend that you do not drive, make important decision, drink alcoholic beverages, or take any drugs that were not prescribed by your health care provider for at least 24 hours after your discharge time. Follow any additional instructions given to you from your surgeon. VERBAL AND WRITTEN instructions given to __PATIENT and asked if any additional questions and then verbalized understanding. Patient advised to call surgeon office or pre surgery nurse liaison [phone] if any additional questions.
[2025-03-17 14:19] VITALS: BMI 27.5
[2025-03-17 15:14] VITALS: BP 119/57; PULSE 88; RESP 18; TEMP 36.9; O2SAT 100
[2025-03-22] VITALS (11 sets, daily range): BP systolic 89–173; BP diastolic 52–87; PULSE 89–98; RESP 14–20; TEMP 36.3–36.8; O2SAT 93–100
--- NOTE | 2025-03-22 06:10 | WPDANESEPPF ---
Anes - Initial Pre Proc Eval Procedure: Operation Date: 03/22/25 07:30 Proposed Procedures p Right Total Hip Arthroplasty - Mendel Henriquez MD Date/Time: 03/22/25 06:10 Surgeon: Mendel Henirquez MD Pre Op Diagnosis: OA right hip Patient Data Age: 79 Gender: F Height: 1.52 m Weight: 63.9 kg Last Vital Signs Temp 36.9 C 03/17/25 15:14 Pulse 88 03/17/25 15:14 Resp 18 03/17/25 15:14 BP 119/57 L 03/17/25 15:14 Pulse Ox 100 03/17/25 15:14 O2 Del Method Room Air 03/17/25 15:14 Allergies Allergy/AdvReac Type Severity Reaction Status Date / Time ampicillin AdvReac Severe Diarrhea Verified 03/22/25 06:01 Penicillins AdvReac Severe CHEST Verified 03/22/25 06:01 PRESSURE Home Medications ?Medication ?Instructions ?Recorded ?Confirmed ?Type multivitamin 1 tablet PO DAILY 09/03/23 03/20/25 History omeprazole 40 mg capsule,delayed 40 mg PO DAILY #90 caps 02/29/24 03/20/25 Rx release triamcinolone acetonide 0.1 % 1 applic topical DAILY PRN VAGINAL 06/06/24 03/20/25 History topical cream RASH famotidine 40 mg tablet 40 mg PO DAILY PRN indigestion #30 01/09/25 03/20/25 Rx tabs lisinopril 40 mg tablet 40 mg PO DAILY #90 tabs 01/09/25 03/20/25 Rx meloxicam 15 mg tablet 15 mg PO DAILY #90 tabs 01/09/25 03/20/25 Rx tramadol 50 mg tablet 50 mg PO Q6H PRN pain #30 tabs 02/03/25 03/20/25 Rx atorvastatin 20 mg tablet 10 mg PO DAILY 02/23/25 03/20/25 History solifenacin 5 mg tablet 5 mg PO DAILY 02/23/25 03/20/25 History Held on 03/20/25. Instructions: .Provider Order hydrochlorothiazide 25 mg tablet 25 mg PO DAILY #30 tabs 03/13/25 03/20/25 Rx amlodipine 10 mg tablet 5 mg PO DAILY 03/20/25 03/20/25 History vibegron 75 mg tablet (Gemtesa) 75 mg PO DAILY #90 tabs 03/20/25 03/20/25 Rx Patient hx anesthesia problems: none Family hx anesthesia problems: none Results Review: All pre-operative results and documents have been reviewed as part of the pre-operative evaluation. [facility] Past Medical History Medical History BMI 27.0-27.9,adult Osteoporosis Arthritis GERD (gastroesophageal reflux disease) Hypertension Hypercholesterolemia Seasonal allergies Surgical History Surgical History History of right knee joint replacement History of hernia repair History of hysterectomy Hx of cholecystectomy History of appendectomy Hx of tonsillectomy Family History Family History Mother Parkinson disease Father Emphysema of lung Social History Social History Smoking packs per day: 1 Smoking cigarettes per day: 20.0 Years smoked: 6 Smoking pack-years: 6.00 Smoking status: Former smoker Tobacco type: cigarettes Second hand tobacco smoke exposure: No Smoking end date: 06/22/81 Additional smoking assessment comments: DENIES ANY FORM OF TOBACCO Alcohol intake: current Alcohol use details: occasional Substance use: never Substance use type: does not use Lack of Transportation: No Lack of Food: Never True Current Housing: I Have Housing Concerned About Future Housing: No Difficulty Paying Gas/Electric Bills: No Difficulty Paying for Meds: No Currently Unemployed: No Education: High School Diploma/GED Difficulty w/ Childcare or Family Care: No Living arrangements: alone Occupation/Education: retired 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 Informed Consent: The patient's anesthetic plan and its attendant risks and benefits were discussed with the patient/family/POA. Questions were solicited and answers provided to the satisfaction of the patient/family/POA.
[2025-03-22] MEDS: LACTATED RINGERS 1,000 ML 30 ML IV CONT ×2 (06:30→09:59)
[2025-03-22] MEDS: VANCOMYCIN HCL 1,000 MG in SODIUM CHLORIDE 0.9% IV 250 ML 250 MG IVPB (06:30)
--- NOTE | 2025-03-22 06:50 | WPDHPUPDATE1 ---
History and Physical Update Update Date/Time: 03/22/25 06:50 History and Physical has been reviewed, including an updated exam of the patient. There are NO changes in the patient's condition. Risks, benefits, and alternatives have been discussed and questions answered. Patient agrees to proceed with procedure. Plan on RIGHT TOTAL HIP ARTHROPLASTY
[2025-03-22] MEDS: ACETAMINOPHEN 500 MG TABLET 1000 MG PO (07:00)
[2025-03-22] MEDS: TRANEXAMIC ACID 1,000MG/ISO100 1,000 MG/100 ML BAG 200 MG IVPB (07:00)
[2025-03-22] MEDS: ceFAZolin 2 GM in SODIUM CHLORIDE 0.9% IV 50 ML 100 ML IVPB ×3 (07:28→23:52)
[2025-03-22] MEDS: BUPIVACAINE/EPINEPHRINE 0.5% 30 ML VIAL INFILTRATE (08:26)
--- NOTE | 2025-03-22 09:13 | W.PM.PROC2 ---
Procedure Note - Detailed Date of Procedure 03/22/25 Pre-op Diagnosis Osteoarthritis right hip Post-op Diagnosis Same Procedure Performed RIGHT Total Hip arthroplasty Surgeon Mendel Henriquez MD Anesthesia General Indications Pain and Arthritis Description of Procedure Patient was brought to the operating room #8, and an anesthetic was administered. The patient was placed with the operative Hip up and sterilely prepped and draped in the usual manner. A longitudinal incision was performed. Dissection was carried down to the fascia. A Hardinge type approach was used and the femoral head was dislocated anteriorly. The Femoral head was removed a finger breath above the lesser trochanter. The acetabulum was serially reamed to accept a 48mm component. This was impacted into place and secured with 2 25mm screws. A high wall liner was placed. The femur was reamed and broached to accept a 3 component which was impacted into place. A minus 3.5 head and neck were placed and the hip was put through full range of motion. The hip was noted to be stable. The wounds were then closed in a layered fashion using #5 ethibond, 2 vicryl, 2-0 vicryl and mamie. Patient left the operating room in satisfactory condition. Implants Robbin Z1 stem Robbin multi hole cup Estimated Blood Loss 600 Drains No Packing No Pathology None sent Complications No immediate complications Condition Stable Disposition PACU [facility] Billing Surgery - Charge Forward: Surgery Billing ([id number] JESUS)
[2025-03-22] MEDS: fentaNYL CITRATE INJ (*CRX) 100 MCG/2 ML VIAL 25 MCG IV PUSH (10:21)
[2025-03-22] MEDS: ONDANSETRON INJ 4 MG/2 ML VIAL IV PUSH (10:44)
--- NOTE | 2025-03-22 11:10 | PC.NURSE ---
This patient, Abdelrahman Cochran, was admitted to Medical Room 261-01 at 1110. Patient/family oriented to hospital policies and general routines including ID bracelet, bed and alarms, visiting hours, pain management, procedures, bathroom and other care routines, personal items, smoking policy, room service/diet, and visiting hours. Information on how to activate the Rapid Response Team has been discussed. Patient/Family are encouraged to report perceived risks to care and to ask questions if they do not understand what they are told or what they should do.
[2025-03-22] MEDS: HYDROcodone/acetaminophen (*CRX) 7.5-325 MG TABLET 1 TAB PO (12:03)
--- NOTE | 2025-03-22 12:33 | PCCCNOTE ---
Pt. granddaughter, Evy Cochran, called to request pt. be placed in a rehab facility for discharge tomorrow. She also spoke with Dr. Henriquez regarding this, he said pt. would need this. I explained to pt.'s granddaughter that we will need to have pt. evaluated by PT/OT tomorrow before we can begin this process. I sent a referral to Caren with [facility]. She spoke with the MD at [facility]. They will decide after pt has been evaluated tomorrow by PT/OT. granddaughter notified of this. Her phone # is .
[2025-03-22] MEDS: HYDROmorphone HCL INJ (*CRX) 1 MG/ML SYR 0.5 MG IV PUSH (14:57)
[2025-03-22] MEDS: SENNA/DOCUSATE SODIUM TABLET 2 TAB PO (16:01)
[2025-03-22] MEDS: RIVAROXABAN 10 MG TABLET PO (16:02)
--- NOTE | 2025-03-22 20:18 | PM.IMCN ---
Assessment and Plan Assessment and plan (1) Osteoarthritis of right hip: Qualifiers: Osteoarthritis type: unspecified Qualified Code(s): M16.11 - Unilateral primary osteoarthritis, right hip Code(s): M16.11 - Unilateral primary osteoarthritis, right hip Status: Acute Assessment and Plan: Underwent a right total hip arthroplasty on 03/22. - ambulate with assistance and up to chair - hip precautions in place - use IS - neurovasc checks - see order for intervals - SCDs/TEDs, started on Xarelto on 03/22 - analgesics and antiemetics p.r.n. - monitor labs in AM - CBC and BMP - bowel regimen: docusate/senna, polyethylene glycol - maintenance fluids: NS 125 mL/hr x8 hrs - PT/OT (2) Hypertension: Qualifiers: Hypertension type: primary hypertension Qualified Code(s): I10 - Essential (primary) hypertension Code(s): I10 - Essential (primary) hypertension Status: Chronic Assessment and Plan: - chronic, currently 145/69, stable - continue home medications: amlodipine, hydrochlorothiazide, lisinopril - monitor (3) Hypercholesterolemia: Code(s): E78.00 - Pure hypercholesterolemia, unspecified Status: Chronic Assessment and Plan: - continue atorvastatin 10 mg daily (4) Atrial fibrillation: Qualifiers: Atrial fibrillation type: unspecified chronic Qualified Code(s): I48.20 - Chronic atrial fibrillation, unspecified Code(s): I48.91 - Unspecified atrial fibrillation Status: Chronic Assessment and Plan: - no longer on rate control medications or anticoagulation - reviewed chart, had EKG performed on 03/17/2025 which showed atrial fibrillation, rate 95, right bundle branch block. Plan Patient became disorganized and mildly disoriented with Dilaudid. Will give Morphine 1 mg IV this evening for pain control before bed instead of Dilaudid. Diet: regular GI Prophylaxis: n/a DVT Prophylaxis: SCDs, TEDs, Xarelto IV fluids: NS 125 mL/hr x 8hrs Lines/Tubes: peripheral IV Code Status: full code HPI Date of Consult Consult date: 03/22/25 Requesting Physician: Mendel Henriquez MD Primary Care Provider: Jeanine Ochoa APRN Consult Narrative Reason for consult: Medical Management Narrative: 79 y/o F with PMH of osteoporosis, atrial fibrillation, HLD, HTN, and arthritis presents here for a right total hip arthroplasty. The patient presents here for a right hip replacement. Prior to surgery she reported a 2 year history of right knee pain. She has a history of a total right knee arthroplasty done in 2019. She reported for the first 5 years post replacement that she had great results and pain was reduced. She then developed sudden pain in her right knee. Patient was seen by the orthopedist outpatient, further exam showed the patient had good range of motion, joint was stable, and imaging showed good alignment/no obvious loosening or change. Her right hip XR however showed [id number] arthritis which they suspected was the source of her discomfort. Postop the patient is reporting no nausea or vomiting and was having significant pain but was able to receive Morphine and has been improved since. Preop VS: 98.4? F, HR 88, RR 18, 118/57, and 100% on RA. Preop workup: No leukocytosis, hemoglobin 11.2, sodium 136, creatinine 1.13 and GFR 46, A1c 5.4%, nasal MRSA negative. Review of Systems Review of Systems: All systems reviewed & are unremarkable except as noted in HPI and below PMFSH Past Medical History Medical History Overactive bladder Atrial fibrillation BMI 27.0-27.9,adult Osteoporosis Arthritis GERD (gastroesophageal reflux disease) Hypertension Hypercholesterolemia Seasonal allergies Surgical History Surgical History History of right knee joint replacement (~2019) History of hernia repair History of hysterectomy Hx of cholecystectomy History of appendectomy Hx of tonsillectomy Family History Family History Mother Parkinson disease Father Emphysema of lung Social History Social History Smoking packs per day: 1 Smoking cigarettes per day: 20.0 Years smoked: 6 Smoking pack-years: 6.00 Smoking status: Never smoker Tobacco type: cigarettes Second hand tobacco smoke exposure: No Smoking end date: 06/22/81 Additional smoking assessment comments: DENIES ANY FORM OF TOBACCO Alcohol intake: never Alcohol use details: occasional Substance use: never Substance use type: does not use Lack of Transportation: No Lack of Food: Never True Current Housing: I Have Housing Concerned About Future Housing: No Difficulty Paying Gas/Electric Bills: No Difficulty Paying for Meds: No Currently Unemployed: No Education: High School Diploma/GED Difficulty w/ Childcare or Family Care: No Living arrangements: alone Occupation/Education: retired 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 Gender identity (if verbalized by the patient): Female Spiritual care concerns: No Meds Home Medications and Allergies Home Medications ?Medication ?Instructions ?Recorded ?Confirmed ?Type multivitamin 1 tablet PO DAILY 09/03/23 03/22/25 History omeprazole 40 mg capsule,delayed 40 mg PO DAILY #90 caps 02/29/24 03/22/25 Rx release triamcinolone acetonide 0.1 % 1 applic topical DAILY PRN VAGINAL 06/06/24 03/20/25 History topical cream RASH famotidine 40 mg tablet 40 mg PO DAILY PRN indigestion #30 01/09/25 03/22/25 Rx tabs lisinopril 40 mg tablet 40 mg PO DAILY #90 tabs 01/09/25 03/22/25 Rx meloxicam 15 mg tablet 15 mg PO DAILY #90 tabs 01/09/25 03/22/25 Rx tramadol 50 mg tablet 50 mg PO Q6H PRN pain #30 tabs 02/03/25 03/20/25 Rx atorvastatin 20 mg tablet 10 mg PO DAILY 02/23/25 03/22/25 History solifenacin 5 mg tablet 5 mg PO DAILY 02/23/25 03/20/25 History Held on 03/20/25. Instructions: .Provider Order hydrochlorothiazide 25 mg tablet 25 mg PO DAILY #30 tabs 03/13/25 03/22/25 Rx amlodipine 10 mg tablet 5 mg PO DAILY 03/20/25 03/22/25 History vibegron 75 mg tablet (Gemtesa) 75 mg PO DAILY #90 tabs 03/20/25 03/22/25 Rx Allergies Allergy/AdvReac Type Severity Reaction Status Date / Time ampicillin AdvReac Severe Diarrhea Verified 03/22/25 07:18 Penicillins AdvReac Severe CHEST Verified 03/22/25 07:18 PRESSURE Vital Signs Vital Signs - 24 hr 03/22/25 07:00 03/22/25 09:59 03/22/25 10:10 Temperature 97.5 F L 97.4 F L Pulse Rate 89 91 97 Respiratory Rate 16 17 16 Blood Pressure 89/62 L 143/66 H 150/64 H Pulse Oximetry 100 100 98 Oxygen Delivery Room Air Simple Face Mask Room Air Oxygen Flow Rate 8 03/22/25 10:25 03/22/25 10:40 03/22/25 10:54 Temperature 98.2 F Pulse Rate 97 96 94 Respiratory Rate 14 16 16 Blood Pressure 102/87 165/59 H 173/64 H Pulse Oximetry 98 94 94 Oxygen Delivery Room Air Room Air Room Air Oxygen Flow Rate 03/22/25 11:14 03/22/25 11:47 03/22/25 12:25 Temperature 98.2 F Pulse Rate 90 94 98 Respiratory Rate 18 18 20 Blood Pressure 145/59 H 113/54 L 135/52 L Pulse Oximetry 97 97 93 Oxygen Delivery Oxygen Flow Rate 03/22/25 13:00 03/22/25 13:16 03/22/25 13:19 Temperature 97.9 F Pulse Rate 96 Respiratory Rate 18 Blood Pressure 150/71 H Pulse Oximetry 99 Oxygen Delivery Room Air Room Air Oxygen Flow Rate 03/22/25 19:52 Temperature 98.3 F Pulse Rate 95 Respiratory Rate 16 Blood Pressure 145/69 H Pulse Oximetry 97 Oxygen Delivery Oxygen Flow Rate Exam Const: General: comfortable and no acute distress Other: , female, elderly, nontoxic appearance HENMT: Face/Nose/Sinus: Normal nares present Mouth: Yes moist mucous membranes Eyes: General: appearance normal, both eyes and all related structures Sclera: sclerae normal Pupils: Equal, round and reactive pupils present EOM: EOMs intact bilaterally Resp: Effort & Inspection: normal respiratory effort Auscultation: clear to auscultation bilaterally Cardio: Rate: regular rate Rhythm: abnormal rhythm Other: S1-S2 present without murmur, rub, ectopy GI: Other: Abdomen soft, nondistended, nontender. Normoactive bowel sounds in all quadrants. Skin: General skin exam: normal color and no rashes or lesions noted Other: Postsurgical incision to right hip, dressing CDI. Neuro: Speech: normal speech Motor exam (neuro): 5/5 motor strength present throughout Sensory Exam: normal sensation Other: Patient alert. Mild confusion noted, however able to answer orientation questions. Extrem: Other: modest edema to right hip and surgical site without hematoma, minimal crepitus. No overt tenderness with palpation. Dressing CDI. Psych: Mental Status: mental status grossly normal Affect: normal affect Other: Fair insight and judgment, pleasant Quality VTE Prophylaxis VTE prophylaxis: mechanical ordered and pharmacologic ordered Hospitalist MIPS Advance Care Plan I have confirmed that the patient's Advanced Care Plan is present, code status is documented, or surrogate decision maker is listed in patient medical record.: Yes Medication Reconciliation I have utilized all available resources to obtain, update and review the patients current medications (includes all prescriptions, OTC, herbals, cannabis, and nutritional supplements).: Yes
[2025-03-22] MEDS: MORPHINE SULFATE (*CRX) 4 MG/ML INJ 1 MG IV PUSH (21:42)
--- NOTE | ~2025-03-23 | XR_ITS ---
EXAMINATION: XR surgery orthopedic DATE: 03/22/2025 09:14 INDICATION: Intraoperative evaluation during right total hip arthroplasty TECHNIQUE: Frontal view of the right hip was obtained on 2 images. COMPARISON: None. FINDINGS: Intraoperative image during a right total hip arthroplasty demonstrate placement of an acetabular component which appears in near anatomic alignment on the single image provided. A femoral broach is in place with the proximal tip centered over the acetabular component on the initial image. This is sub sequently replaced with a standard femoral component which appears normally centered within the acetabular component. Portions of the pelvis are either excluded from the [id number] or obscured by a bolster. No fractures in the visualized bones. IMPRESSION: 1. Expected appearance during right total hip arthroplasty. Reviewed, dictated and finalized at location A.
[2025-03-23 00:27] LABS: Add Urine Microscopic? YES; Appearance Urine Clear (Clear); Glucose Urine UA Negative (Negative); Leukocyte Esterase Ur Trace LEU/UL (Negative); Nitrate Urine Negative (Negative); Non Pathogenic Casts 0-2; Specific Grav Ur 1.009 (1.001-1.035)
[2025-03-23 00:44] VITALS: BP 136/58; PULSE 93; RESP 18; TEMP 37; O2SAT 96
[2025-03-23 04:55] VITALS: BP 137/67; PULSE 90; RESP 16; TEMP 37.2; O2SAT 94
[2025-03-23 05:14] LABS: Hematocrit 26.9 % (37.0-47.0); Hemoglobin 8.7 g/dL (12.0-15.0); Immature Granulocyte Percent A 0.3 % (0-0.5); Lymphocytes Absolute Auto 0.82 K/mm3 (0.9-3.2); Mean Corpuscular HGB Conc 32.3 g/dl (32-36); Mean Corpuscular Hemoglobin 29.8 pg (26-34); Mean Corpuscular Volume 92.1 fl (80-100); Nucleated Red Blood Cells Absolute Auto 0.000 K/mm3 (0.0-0.012); Nucleated Red Blood Cells Perc 0.0 % (0.0-0.2); Platelet Count Result 289 k/mm3 (150-375); Red Blood Count 2.92 M/mm3 (4.2-5.4); White Blood Count 11.8 K/mm3 (4.5-10.0)
[2025-03-23 05:37] LABS: Anion Gap 8 mmol/L (4-12); Blood Urea Nitrogen 27 mg/dL (7-17); Calcium 8.9 mg/dL (8.4-10.2); Carbon Dioxide 25 mmol/L (22-30); Chloride 100 mmol/L (98-107); Estimated CRCL calculation 31 ml/min; Estimated Glomerular Filt Rate 48; Glucose 103 mg/dL (65-110); Potassium 3.9 mmol/L (3.4-5.0); Sodium 133 mmol/L (137-145)
--- NOTE | 2025-03-23 06:58 | PM.PNORT ---
Progress Note: A&P Assessment and Plan (1) History of right hip replacement: Code(s): Z96.641 - Presence of right artificial hip joint Status: Acute Assessment and Plan: Patient is status post right total hip arthroplasty for osteoarthritis. She is progressing slowly. Partly due to her age. Will evaluate her for rehab versus home health. Subjective Subjective Date/Time Seen: 03/23/25 06:58 Post Op day: 1 Principal diagnosis: Right total hip arthroplasty for osteoarthritis Review of Systems Review of Systems: All systems reviewed & are unremarkable except as noted in HPI and below Exam Narrative: Patient wiggles toes. The dressing is dry and intact. Neurologically she is intact. She is able a ambulate with a walker. Objective Data Vital Signs Vital Signs: Vital Signs - 24 hr 03/22/25 07:00 03/22/25 09:59 03/22/25 10:10 Temperature 97.5 F L 97.4 F L Pulse Rate 89 91 97 Respiratory Rate 16 17 16 Blood Pressure 89/62 L 143/66 H 150/64 H Pulse Oximetry 100 100 98 Oxygen Delivery Room Air Simple Face Mask Room Air Oxygen Flow Rate 8 03/22/25 10:25 03/22/25 10:40 03/22/25 10:54 Temperature 98.2 F Pulse Rate 97 96 94 Respiratory Rate 14 16 16 Blood Pressure 102/87 165/59 H 173/64 H Pulse Oximetry 98 94 94 Oxygen Delivery Room Air Room Air Room Air Oxygen Flow Rate 03/22/25 11:14 03/22/25 11:47 03/22/25 12:25 Temperature 98.2 F Pulse Rate 90 94 98 Respiratory Rate 18 18 20 Blood Pressure 145/59 H 113/54 L 135/52 L Pulse Oximetry 97 97 93 Oxygen Delivery Oxygen Flow Rate 03/22/25 13:00 03/22/25 13:16 03/22/25 13:19 Temperature 97.9 F Pulse Rate 96 Respiratory Rate 18 Blood Pressure 150/71 H Pulse Oximetry 99 Oxygen Delivery Room Air Room Air Oxygen Flow Rate 03/22/25 19:52 03/22/25 20:00 03/23/25 00:44 Temperature 98.3 F 98.6 F Pulse Rate 95 93 Respiratory Rate 16 18 Blood Pressure 145/69 H 136/58 L Pulse Oximetry 97 96 Oxygen Delivery Room Air Oxygen Flow Rate 03/23/25 04:55 Temperature 98.9 F Pulse Rate 90 Respiratory Rate 16 Blood Pressure 137/67 Pulse Oximetry 94 Oxygen Delivery Oxygen Flow Rate Intake/Output Intake/Output: Intake & Output 03/20/25 03/21/25 03/22/25 03/23/25 23:59 23:59 23:59 23:59 Intake Total 1410 450 Output Total 400 1750 Balance 1010 -1300 Meds/Results Medications: Active Medications Generic Name Dose Route Start Last Admin Trade Name Freq PRN Reason Stop Dose Admin Hydrocodone Bitart/Acetaminophen 1 tab 03/22/25 10:59 Hydrocodone/Acetaminophen (*Crx) 5-325 Mg Tablet PO Q4H PRN Pain Rated 4-6 Hydrocodone Bitart/Acetaminophen 1 tab 03/22/25 10:59 03/22/25 12:03 Hydrocodone/Acetaminophen (*Crx) 7.5-325 Mg Tablet PO 1 tab Q4H PRN Administration Pain Rated 7-10 Amlodipine Besylate 5 mg 03/23/25 09:00 Amlodipine Besylate 5 Mg Tablet PO DAILY [facility] Atorvastatin Calcium 10 mg 03/23/25 09:00 Atorvastatin 10 Mg Tablet PO DAILY [facility] Celecoxib 200 mg 03/23/25 09:00 Celecoxib 200 Mg Capsule PO DAILY [facility] Hydrochlorothiazide 25 mg 03/23/25 09:00 Hydrochlorothiazide 25 Mg Tablet PO DAILY [facility] Hydromorphone HCl 1 mg 03/22/25 10:59 Hydromorphone Hcl Inj (*Crx) 1 Mg/Ml Syr IV PUSH Q2H PRN Breakthrough Pain Rated 7-10 or NPO Hydromorphone HCl 0.5 mg 03/22/25 10:59 03/22/25 14:57 Hydromorphone Hcl Inj (*Crx) 1 Mg/Ml Syr IV PUSH 0.5 mg Q2H PRN Administration Breakthrough Pain Rated 4-6 or NPO Cefazolin Sodium 2 gm/ Sodium 50 mls @ 100 mls/hr 03/22/25 16:00 03/23/25 00:22 Chloride IVPB 03/23/25 08:29 Infused Q8H [facility] Infusion Sodium Chloride 1,000 mls @ 125 mls/hr 03/22/25 10:59 03/23/25 03:04 Normal Saline Iv IV CONT Not Given .Q8H [facility] Ibuprofen 800 mg in 200 mls @ 400 mls/hr 03/22/25 10:59 Caldolor 800 Mg/200 Ml IVPB Q6H PRN Breakthrough Pain Rated 1-3 or NPO Lisinopril 40 mg 03/23/25 09:00 Lisinopril 20 Mg Tablet PO DAILY [facility] Miscellaneous Information 1 each 03/22/25 00:01 Vibegron Nonformulary. Can Patient Use From Home Or Hold Till Discharge? XX 04/21/25 00:00 CLARIFY [facility] Naloxone HCl 0.1 mg 03/22/25 10:59 Naloxone Hcl 0.4 Mg/Ml Vial IV PUSH Q2M PRN Opiate Reversal Non-Formulary Medication 75 mg 03/23/25 09:00 Vibegron [Gemtesa] PO 04/22/25 08:59 DAILY [facility] Ondansetron HCl 4 mg 03/22/25 10:59 Ondansetron Inj 4 Mg/2 Ml Vial IV PUSH Q4H PRN Nausea And Vomiting Polyethylene Glycol 17 gm 03/23/25 09:00 Polyethylene Glycol 3350 17 Gm Powd.Pack PO QAM [facility] Rivaroxaban 10 mg 03/22/25 17:00 03/22/25 16:02 Rivaroxaban 10 Mg Tablet PO 10 mg DAILY@1700 [facility] Administration Senna/Docusate Sodium 2 tab 03/22/25 17:00 03/22/25 16:01 Senna/Docusate Sodium Tablet PO 2 tab BID [facility] Administration Tramadol HCl 50 mg 03/22/25 10:59 Tramadol Hcl (*Crx) 50 Mg Tablet PO Q4H PRN Pain Rated 1-3 Radiology Results: ITS Impressions Intraoperative X-Ray 03/22/25 09:17 IMPRESSION: 1. Expected appearance during right total hip arthroplasty. Labs Labs: Laboratory Results - last 24 hr 03/23/25 03/23/25 00:12 04:35 WBC 11.8 H RBC 2.92 L Hgb 8.7 L Hct 26.9 L MCV 92.1 MCH 29.8 MCHC 32.3 RDW 13.8 Plt Count 289 MPV 11.4 H Immature Gran % (Auto) 0.3 Neut % (Auto) 80.0 H Lymph % (Auto) 6.9 L Reynolds % (Auto) 12.6 H Eos % (Auto) 0.0 Baso % (Auto) 0.2 Lymph # (Auto) 0.82 L Reynolds # (Auto) 1.5 H Eos # (Auto) 0.0 Baso # (Auto) 0.0 Abs Immat Gran (auto) 0.04 H Absolute Neuts (auto) 9.4 H Absolute Nucleated RBC 0.000 Nucleated RBC % 0.0 Sodium 133 L Potassium 3.9 Chloride 100 Carbon Dioxide 25 Anion Gap 8 BUN 27 H Creatinine 1.09 H Estim Creat Clear Calc 31 Estimated GFR 48 L Glucose 103 Calcium 8.9 Urine Color Yellow Urine Appearance Clear Urine pH 5.0 Ur Specific [place] 1.009 Urine Protein Negative Urine Glucose (UA) Negative Urine Ketones Negative Ur Blood (Man) Negative Urine Nitrate Negative Urine Bilirubin Negative Urine Urobilinogen 0.2 Leukocyte Esterase Rfl Trace H Urine RBC 0-2 Urine WBC 0-5 Ur Squamous Epith Cells None seen Urine Bacteria None seen Urine Casts 0-2
--- NOTE | 2025-03-23 07:09 | P.PNIM_ITS ---
Progress Note: A&P Assessment and Plan (1) Osteoarthritis of right hip: Qualifiers: Osteoarthritis type: unspecified Qualified Code(s): M16.11 - Unilateral primary osteoarthritis, right hip Code(s): M16.11 - Unilateral primary osteoarthritis, right hip Status: Acute Assessment and Plan: Underwent a right total hip arthroplasty on 03/[address] Henriquez - ambulate with assistance and up to chair - hip precautions in place - use IS - neurovasc checks - see order for intervals - SCDs/TEDs, started on Xarelto on 03/22 per ortho - analgesics and antiemetics p.r.n. - monitor labs in AM - CBC and BMP - bowel regimen: docusate/senna, polyethylene glycol - PT/OT: partial weight bearing status (2) Hypertension: Qualifiers: Hypertension type: primary hypertension Qualified Code(s): I10 - Essential (primary) hypertension Code(s): I10 - Essential (primary) hypertension Status: Chronic Assessment and Plan: - chronic, continue home medications - amlodipine 5 mg daily - hydrochlorothiazide 25 mg daily - lisinopril 40 mg daily - blood pressures reviewed and stable, continue to monitor (3) Atrial fibrillation: Qualifiers: Atrial fibrillation type: unspecified chronic Qualified Code(s): I48.20 - Chronic atrial fibrillation, unspecified Code(s): I48.91 - Unspecified atrial fibrillation Status: Chronic Assessment and Plan: - reviewed chart, EKG performed on 03/17/2025 which showed atrial fibrillation, rate 95 - no longer on rate control medications or anticoagulation - HR reviewed and remains stable (4) Hypercholesterolemia: Code(s): E78.00 - Pure hypercholesterolemia, unspecified Status: Chronic Assessment and Plan: - continue atorvastatin 10 mg daily Plan Diet: regular GI Prophylaxis: n/a DVT Prophylaxis: SCDs, TEDs, Xarelto Lines/Tubes: peripheral IV Code Status: full code Time Spent With Patient Time with patient: 25 - 35 minutes Subjective Date/time seen: 03/23/25 07:09 Interval history: 79 year old female with past medical history of osteoporosis, atrial fibrillation, HLD, HTN, and arthritis presents to the hospital for a right total hip arthroplasty. Patient is pleasant sitting up comfortably in bed working with physical therapy. She states that pain is well controlled at this time. She has no complaints denying chest pain, shortness a breath, palpitations, nausea/vomiting, and abdominal pain. Review of Systems Review of Systems: All systems reviewed & are unremarkable except as noted in HPI and below Exam Narrative: AF HR 91 RR 18 SpO2 98 BP 119/62 General: female in no acute respiratory distress who is nontoxic appearing, sitting up in bed working with PT. HEENT: Normocephalic. Atraumatic. Extraocular movement intact. Sclera clear and anicteric. No facial asymmetry. Chest: Lungs are clear to auscultation bilaterally. No wheezes or crackles. CV: Heart was regular rate and rhythm. Abd: Abdomen was soft. Nontender. Nondistended. Positive bowel sounds. Ext: No clubbing, cyanosis. Edema to the right hip, dressing clean/dry/intact. DP pulses bilaterally. Neuro: Patient is alert. Speech is clear. Objective Data Vital Signs Vital Signs: Vital Signs - 24 hr 03/22/25 09:59 03/22/25 10:10 03/22/25 10:25 Temperature 97.4 F L 98.2 F Pulse Rate 91 97 97 Respiratory Rate 17 16 14 Blood Pressure 143/66 H 150/64 H 102/87 Pulse Oximetry 100 98 98 Oxygen Delivery Simple Face Mask Room Air Room Air Oxygen Flow Rate 8 03/22/25 10:40 03/22/25 10:54 03/22/25 11:14 Temperature 98.2 F Pulse Rate 96 94 90 Respiratory Rate 16 16 18 Blood Pressure 165/59 H 173/64 H 145/59 H Pulse Oximetry 94 94 97 Oxygen Delivery Room Air Room Air Oxygen Flow Rate 03/22/25 11:47 03/22/25 12:25 03/22/25 13:00 Temperature Pulse Rate 94 98 Respiratory Rate 18 20 Blood Pressure 113/54 L 135/52 L Pulse Oximetry 97 93 Oxygen Delivery Room Air Oxygen Flow Rate 03/22/25 13:16 03/22/25 13:19 03/22/25 19:52 Temperature 97.9 F 98.3 F Pulse Rate 96 95 Respiratory Rate 18 16 Blood Pressure 150/71 H 145/69 H Pulse Oximetry 99 97 Oxygen Delivery Room Air Oxygen Flow Rate 03/22/25 20:00 03/23/25 00:44 03/23/25 04:55 Temperature 98.6 F 98.9 F Pulse Rate 93 90 Respiratory Rate 18 16 Blood Pressure 136/58 L 137/67 Pulse Oximetry 96 94 Oxygen Delivery Room Air Oxygen Flow Rate Intake/Output Intake/Output: Intake & Output 03/20/25 03/21/25 03/22/25 03/23/25 23:59 23:59 23:59 23:59 Intake Total 1410 450 Output Total 400 1750 Balance 1010 -1300 Meds/Results Medications: Active Medications Generic Name Dose Route Start Last Admin Trade Name Freq PRN Reason Stop Dose Admin Hydrocodone Bitart/Acetaminophen 1 tab 03/22/25 10:59 Hydrocodone/Acetaminophen (*Crx) 5-325 Mg Tablet PO Q4H PRN Pain Rated 4-6 Hydrocodone Bitart/Acetaminophen 1 tab 03/22/25 10:59 03/22/25 12:03 Hydrocodone/Acetaminophen (*Crx) 7.5-325 Mg Tablet PO 1 tab Q4H PRN Administration Pain Rated 7-10 Amlodipine Besylate 5 mg 03/23/25 09:00 Amlodipine Besylate 5 Mg Tablet PO DAILY [facility] Atorvastatin Calcium 10 mg 03/23/25 09:00 Atorvastatin 10 Mg Tablet PO DAILY [facility] Celecoxib 200 mg 03/23/25 09:00 Celecoxib 200 Mg Capsule PO DAILY [facility] Hydrochlorothiazide 25 mg 03/23/25 09:00 Hydrochlorothiazide 25 Mg Tablet PO DAILY [facility] Hydromorphone HCl 1 mg 03/22/25 10:59 Hydromorphone Hcl Inj (*Crx) 1 Mg/Ml Syr IV PUSH Q2H PRN Breakthrough Pain Rated 7-10 or NPO Hydromorphone HCl 0.5 mg 03/22/25 10:59 03/22/25 14:57 Hydromorphone Hcl Inj (*Crx) 1 Mg/Ml Syr IV PUSH 0.5 mg Q2H PRN Administration Breakthrough Pain Rated 4-6 or NPO Cefazolin Sodium 2 gm/ Sodium 50 mls @ 100 mls/hr 03/22/25 16:00 03/23/25 00:22 Chloride IVPB 03/23/25 08:29 Infused Q8H [facility] Infusion Ibuprofen 800 mg in 200 mls @ 400 mls/hr 03/22/25 10:59 Caldolor 800 Mg/200 Ml IVPB Q6H PRN Breakthrough Pain Rated 1-3 or NPO Lisinopril 40 mg 03/23/25 09:00 Lisinopril 20 Mg Tablet PO DAILY [facility] Miscellaneous Information 1 each 03/22/25 00:01 Vibegron Nonformulary. Can Patient Use From Home Or Hold Till Discharge? XX 04/21/25 00:00 CLARIFY [facility] Naloxone HCl 0.1 mg 03/22/25 10:59 Naloxone Hcl 0.4 Mg/Ml Vial IV PUSH Q2M PRN Opiate Reversal Non-Formulary Medication 75 mg 03/23/25 09:00 Vibegron [Gemtesa] PO 04/22/25 08:59 DAILY [facility] Ondansetron HCl 4 mg 03/22/25 10:59 Ondansetron Inj 4 Mg/2 Ml Vial IV PUSH Q4H PRN Nausea And Vomiting Polyethylene Glycol 17 gm 03/23/25 09:00 Polyethylene Glycol 3350 17 Gm Powd.Pack PO QAM [facility] Rivaroxaban 10 mg 03/22/25 17:00 03/22/25 16:02 Rivaroxaban 10 Mg Tablet PO 10 mg DAILY@1700 [facility] Administration Senna/Docusate Sodium 2 tab 03/22/25 17:00 03/22/25 16:01 Senna/Docusate Sodium Tablet PO 2 tab BID [facility] Administration Tramadol HCl 50 mg 03/22/25 10:59 Tramadol Hcl (*Crx) 50 Mg Tablet PO Q4H PRN Pain Rated 1-3 Radiology Results: ITS Impressions Intraoperative X-Ray 03/22/25 09:17 IMPRESSION: 1. Expected appearance during right total hip arthroplasty. Labs Labs: Laboratory Results - last 24 hr 03/23/25 03/23/25 00:12 04:35 WBC 11.8 H RBC 2.92 L Hgb 8.7 L Hct 26.9 L MCV 92.1 MCH 29.8 MCHC 32.3 RDW 13.8 Plt Count 289 MPV 11.4 H Immature Gran % (Auto) 0.3 Neut % (Auto) 80.0 H Lymph % (Auto) 6.9 L [place] % (Auto) 12.6 H Eos % (Auto) 0.0 Baso % (Auto) 0.2 Lymph # (Auto) 0.82 L [place] # (Auto) 1.5 H Eos # (Auto) 0.0 Baso # (Auto) 0.0 Abs Immat Gran (auto) 0.04 H Absolute Neuts (auto) 9.4 H Absolute Nucleated RBC 0.000 Nucleated RBC % 0.0 Sodium 133 L Potassium 3.9 Chloride 100 Carbon Dioxide 25 Anion Gap 8 BUN 27 H Creatinine 1.09 H Estim Creat Clear Calc 31 Estimated GFR 48 L Glucose 103 Calcium 8.9 Urine Color Yellow Urine Appearance Clear Urine pH 5.0 Ur Specific [place] 1.009 Urine Protein Negative Urine Glucose (UA) Negative Urine Ketones Negative Ur Blood (Man) Negative Urine Nitrate Negative Urine Bilirubin Negative Urine Urobilinogen 0.2 Leukocyte Esterase Rfl Trace H Urine RBC 0-2 Urine WBC 0-5 Ur Squamous Epith Cells None seen Urine Bacteria None seen Urine Casts 0-2 Quality VTE Prophylaxis VTE prophylaxis: mechanical ordered and pharmacologic ordered
[2025-03-23] MEDS: CELECOXIB 200 MG CAPSULE PO (09:50)
[2025-03-23] MEDS: ATORVASTATIN 10 MG TABLET PO (09:51)
[2025-03-23] MEDS: ceFAZolin 2 GM in SODIUM CHLORIDE 0.9% IV 50 ML 100 ML IVPB (09:51)
[2025-03-23] MEDS: SENNA/DOCUSATE SODIUM TABLET 2 TAB PO ×2 (09:51→17:51)
[2025-03-23 09:57] VITALS: O2SAT 95
[2025-03-23] MEDS: HYDROcodone/acetaminophen (*CRX) 5-325 MG TABLET 1 TAB PO ×2 (10:15→18:02)
[2025-03-23 10:34] VITALS: BP 119/62; PULSE 91; RESP 18; TEMP 36.1; O2SAT 98
[2025-03-23 13:28] VITALS: BP 119/62; PULSE 91; RESP 18; TEMP 36.1; O2SAT 98
[2025-03-23] MEDS: RIVAROXABAN 10 MG TABLET PO (17:51)
[2025-03-23 20:35] VITALS: BP 101/57; PULSE 92; RESP 16; TEMP 36.7; O2SAT 98
[2025-03-24 05:27] VITALS: BP 105/73; PULSE 95; RESP 16; TEMP 36.7; O2SAT 94
--- NOTE | 2025-03-24 07:17 | PM.IMPN ---
Progress Note: A&P Assessment and Plan (1) Osteoarthritis of right hip: Qualifiers: Osteoarthritis type: unspecified Qualified Code(s): M16.11 - Unilateral primary osteoarthritis, right hip Code(s): M16.11 - Unilateral primary osteoarthritis, right hip Status: Acute Assessment and Plan: Underwent a right total hip arthroplasty on 03/[address] Henriquez - ambulate with assistance and up to chair - hip precautions in place - use IS - neurovasc checks - see order for intervals - SCDs/TEDs, started on Xarelto on 03/22 per ortho - analgesics and antiemetics p.r.n. - monitor labs in AM - CBC and BMP - bowel regimen: docusate/senna, polyethylene glycol - PT/OT: partial weight bearing status (2) Hypertension: Qualifiers: Hypertension type: primary hypertension Qualified Code(s): I10 - Essential (primary) hypertension Code(s): I10 - Essential (primary) hypertension Status: Chronic Assessment and Plan: - chronic, continue home medications - amlodipine 5 mg daily - hydrochlorothiazide 25 mg daily - lisinopril 40 mg daily - blood pressures reviewed and stable, continue to monitor (3) Atrial fibrillation: Qualifiers: Atrial fibrillation type: unspecified chronic Qualified Code(s): I48.20 - Chronic atrial fibrillation, unspecified Code(s): I48.91 - Unspecified atrial fibrillation Status: Chronic Assessment and Plan: - reviewed chart, EKG performed on 03/17/2025 which showed atrial fibrillation, rate 95 - no longer on rate control medications or anticoagulation - HR reviewed and remains stable Denies chest pain and palpitations. (4) Hypercholesterolemia: Code(s): E78.00 - Pure hypercholesterolemia, unspecified Status: Chronic Assessment and Plan: - continue atorvastatin 10 mg daily Plan Diet: regular GI Prophylaxis: n/a DVT Prophylaxis: SCDs, TEDs, Xarelto Lines/Tubes: peripheral IV Code Status: full code Time Spent With Patient Time with patient: 25 - 35 minutes Subjective Date/time seen: 03/24/25 07:17 Interval history: 79 year old female with past medical history of osteoporosis, atrial fibrillation, HLD, HTN, and arthritis presents to the hospital for a right total hip arthroplasty. Patient is pleasant sitting up comfortably in bed. She states pain is well controlled on the current regimen. She denies any tingling/numbness or shooting pain. She has no other complaints denying chest pain, palpitations, shortness of breath, nausea/vomiting and abdominal pain. Review of Systems Review of Systems: All systems reviewed & are unremarkable except as noted in HPI and below Exam Narrative: AF HR 95 RR 16 Spo2 94 BP 105/73 General: female in no acute respiratory distress who is nontoxic appearing, sitting up in bed HEENT: Normocephalic. Atraumatic. Extraocular movement intact. Sclera clear and anicteric. No facial asymmetry. Chest: Lungs are clear to auscultation bilaterally. No wheezes or crackles. CV: Heart was regular rate and rhythm. Abd: Abdomen was soft. Nontender. Nondistended. Positive bowel sounds. Ext: No clubbing, cyanosis. Edema to the right hip, dressing clean/dry/intact to the mid lateral thigh. Bruising to the lower aspect of surgical dressing. DP pulses bilaterally. Neuro: Patient is alert. Speech is clear. Objective Data Vital Signs Vital Signs: Vital Signs - 24 hr 03/23/25 09:50 03/23/25 09:57 03/23/25 10:34 Temperature 97.0 F L Pulse Rate 91 Respiratory Rate 18 Blood Pressure 119/62 Pulse Oximetry 95 98 Oxygen Delivery Room Air Room Air 03/23/25 13:28 03/23/25 20:00 03/23/25 20:35 Temperature 97.0 F L 98.1 F Pulse Rate 91 92 Respiratory Rate 18 16 Blood Pressure 119/62 101/57 L Pulse Oximetry 98 98 Oxygen Delivery Room Air 03/24/25 05:27 Temperature 98.1 F Pulse Rate 95 Respiratory Rate 16 Blood Pressure 105/73 Pulse Oximetry 94 Oxygen Delivery Intake/Output Intake/Output: Intake & Output 03/21/25 03/22/25 03/23/25 03/24/25 23:59 23:59 23:59 23:59 Intake Total 1410 1650 250 Output Total 400 2050 600 Balance 1010 -400 -350 Meds/Results Medications: Active Medications Generic Name Dose Route Start Last Admin Trade Name Freq PRN Reason Stop Dose Admin Hydrocodone Bitart/Acetaminophen 1 tab 03/22/25 10:59 03/23/25 18:02 Hydrocodone/Acetaminophen (*Crx) 5-325 Mg Tablet PO 1 tab Q4H PRN Administration Pain Rated 4-6 Hydrocodone Bitart/Acetaminophen 1 tab 03/22/25 10:59 03/22/25 12:03 Hydrocodone/Acetaminophen (*Crx) 7.5-325 Mg Tablet PO 1 tab Q4H PRN Administration Pain Rated 7-10 Amlodipine Besylate 5 mg 03/23/25 09:00 03/23/25 09:51 Amlodipine Besylate 5 Mg Tablet PO 5 mg DAILY [facility] Administration Atorvastatin Calcium 10 mg 03/23/25 09:00 03/23/25 09:51 Atorvastatin 10 Mg Tablet PO 10 mg DAILY [facility] Administration Celecoxib 200 mg 03/23/25 09:00 03/23/25 09:50 Celecoxib 200 Mg Capsule PO 200 mg DAILY [facility] Administration Hydrochlorothiazide 25 mg 03/23/25 09:00 03/23/25 09:51 Hydrochlorothiazide 25 Mg Tablet PO 25 mg DAILY [facility] Administration Hydromorphone HCl 1 mg 03/22/25 10:59 Hydromorphone Hcl Inj (*Crx) 1 Mg/Ml Syr IV PUSH Q2H PRN Breakthrough Pain Rated 7-10 or NPO Hydromorphone HCl 0.5 mg 03/22/25 10:59 03/22/25 14:57 Hydromorphone Hcl Inj (*Crx) 1 Mg/Ml Syr IV PUSH 0.5 mg Q2H PRN Administration Breakthrough Pain Rated 4-6 or NPO Ibuprofen 800 mg in 200 mls @ 400 mls/hr 03/22/25 10:59 Caldolor 800 Mg/200 Ml IVPB Q6H PRN Breakthrough Pain Rated 1-3 or NPO Lisinopril 40 mg 03/23/25 09:00 03/23/25 09:50 Lisinopril 20 Mg Tablet PO 40 mg DAILY [facility] Administration Miscellaneous Information 1 each 03/22/25 00:01 03/23/25 22:31 Vibegron Nonformulary. Can Patient Use From Home Or Hold Till Discharge? XX 04/21/25 00:00 Not Given CLARIFY [facility]ACK Naloxone HCl 0.1 mg 03/22/25 10:59 Naloxone Hcl 0.4 Mg/Ml Vial IV PUSH Q2M PRN Opiate Reversal Non-Formulary Medication 75 mg 03/23/25 09:00 Vibegron [Gemtesa] PO 04/22/25 08:59 DAILY [facility] Ondansetron HCl 4 mg 03/22/25 10:59 Ondansetron Inj 4 Mg/2 Ml Vial IV PUSH Q4H PRN Nausea And Vomiting Polyethylene Glycol 17 gm 03/23/25 09:00 03/23/25 09:51 Polyethylene Glycol 3350 17 Gm Powd.Pack PO 17 gm QAM [facility]ACK Administration Rivaroxaban 10 mg 03/22/25 17:00 03/23/25 17:51 Rivaroxaban 10 Mg Tablet PO 10 mg DAILY@1700 [facility] Administration Senna/Docusate Sodium 2 tab 03/22/25 17:00 03/23/25 17:51 Senna/Docusate Sodium Tablet PO 2 tab BID JACK Administration Tramadol HCl 50 mg 03/22/25 10:59 Tramadol Hcl (*Crx) 50 Mg Tablet PO Q4H PRN Pain Rated 1-3 Radiology Results: ITS Impressions Intraoperative X-Ray 03/22/25 09:17 IMPRESSION: 1. Expected appearance during right total hip arthroplasty. Quality VTE Prophylaxis VTE prophylaxis: mechanical ordered and pharmacologic ordered
[2025-03-24 08:10] VITALS: O2SAT 97
[2025-03-24 08:12] VITALS: BP 132/72; PULSE 107; O2SAT 97
[2025-03-24] MEDS: HYDROcodone/acetaminophen (*CRX) 5-325 MG TABLET 1 TAB PO (08:13)
[2025-03-24] MEDS: SENNA/DOCUSATE SODIUM TABLET 2 TAB PO ×2 (08:16→16:24)
[2025-03-24] MEDS: ATORVASTATIN 10 MG TABLET PO (08:16)
[2025-03-24] MEDS: CELECOXIB 200 MG CAPSULE PO (08:16)
[2025-03-24 09:05] LABS: Hematocrit 32.0 % (37.0-47.0); Hemoglobin 10.3 g/dL (12.0-15.0); Mean Corpuscular HGB Conc 32.2 g/dl (32-36); Mean Corpuscular Hemoglobin 29.9 pg (26-34); Mean Corpuscular Volume 92.8 fl (80-100); Platelet Count Result 326 k/mm3 (150-375); Red Blood Count 3.45 M/mm3 (4.2-5.4); White Blood Count 11.1 K/mm3 (4.5-10.0)
[2025-03-24 09:25] LABS: Alanine Aminotransferase 10 U/L (6-35); Albumin Level 4.0 g/dL (3.5-5.1); Alkaline Phosphatase 71 U/L (38-126); Anion Gap 7 mmol/L (4-12); Aspartate Amino Transferase 38 U/L (14-36); Bilirubin,Total 0.8 mg/dL (0.2-1.3); Blood Urea Nitrogen 25 mg/dL (7-17); Calcium 9.3 mg/dL (8.4-10.2); Carbon Dioxide 31 mmol/L (22-30); Chloride 96 mmol/L (98-107); Estimated CRCL calculation 36 ml/min; Estimated Glomerular Filt Rate 59; Glucose 108 mg/dL (65-110); Potassium 3.7 mmol/L (3.4-5.0); Sodium 134 mmol/L (137-145); Total Protein 7.2 g/dL (6.3-8.2)
[2025-03-24 15:51] VITALS: BP 128/88; PULSE 100; RESP 16; TEMP 36.5; O2SAT 100
[2025-03-24] MEDS: RIVAROXABAN 10 MG TABLET PO (16:24)
--- NOTE | 2025-03-27 10:58 | PC.NURSE ---
This RN contacted pt for dc followup call and pt inquired about about aspirin and her other blood thinner medicine. This RN instructed pt to call her preferred pharmacy. Pt expressed no other questions or concerns.
--- NOTE | 2025-03-28 07:00 | PM.DS ---
DS: Admitting Diagnosis Discharge Date 03/24/25 Admitting Diagnosis Osteoarthritis right hip DS: Discharge Diagnosis Discharge Diagnosis (1) History of right hip replacement: Code(s): Z96.641 - Presence of right artificial hip joint Status: Acute Assessment and Plan: Right total hip arthroplasty for osteoarthritis DS: Summary Hospital Course Hospital Course: Patient underwent total hip arthroplasty for osteoarthritis she progressed slowly afterwards. She is 79 years of age and had some pain issues. However is she progressed reasonably well. I suggested rehab. She wanted to go home. He she does have a good family support system will dismissed home with previous medications hydrocodone for pain and Xarelto for full blood clots. I will see her back in 2 weeks for mamie out. She has any changes or problems she will call. She is to be touch weight-bearing at this time. Status at Discharge Functional status at discharge: uses cane/walker Time Spent with Patient Time attestation: Total time spent providing and/or coordinating discharge services: Exam Narrative: Patient is able to wiggle her toes. Dressing is dry and intact. Neurologically she appears normal. She is able ambulate with a walker. Discharge Plan Discharge Attending physician on discharge: Mendel Henriquez Consulting providers: Maria E Murphy; Selene Hartman; Sean Burnham; David Gates Discharging Clinician: Mendel Henriquez Anticipated Discharge Date/Time: 03/24/25 07:24 Patient Disposition: Home with Home Health Service Activity: no shower and no straining Diet: as tolerated and regular Wound Care Instructions: keep dressing dry Discharge Instructions: Dr. Mendel Henriquez M.D [id number] [address] POST-OPERATIVE DISCHARGE INSTRUCTIONS TOTAL HIP ARTHROPLASTY 1. Move toes/feet up and down every hour while awake. 2. Be up walking every hour while awake. 3. Use walker time stamp assembler if instructed to use walker time stamp assembler.When you are allowed to use the cane, use the cane in the opposite hand. 4. When resting, do not rest in the chair. Rather, lie on your back, with back flat, and the leg elevated above heart to minimize swelling. You may put a pillow under your head. Do not rest in a chair. Resting in the chair results in swelling in the leg. Significant swelling could indicate a blood clot and if this occurs, call the office (or go to the ER) to have a venous ultrasound performed. Its ok to sit in the chair to eat and use the toilet and to receive a guest but sitting in a chair will cause your leg to swell. so try to minimize sitting in a chair. 5. Wound Care: Apply a folded 4x4 sponge to incision and hold with crossing strips of 1 inch Transpore tape. 6. Follow weight bearing status as instructed: 7. May shower. Remove dressing before shower and reapply dressing after shower. Care Coordination: Patient to have [facility] for PT/OT eval and treat, and penitentiary. Their phone number is [phone], if you have any questions; they will contact you to schedule their visits. RN Please fax discharge instructions to [phone]. [facility] does not have Xarelto 10 mg in stock. You must strip picker your Xarelto medication at the [facility] in [place]. You will strip picker the remaining medications at your preferred [facility]. Patient Instructions: Antibiotic Form, Rivaroxaban (By mouth) Patient Language: Kazakh Stand Alone Forms: General Discharge Information, General Discharge Instructions Follow-up/Referrals: Mendel Henriquez MD [Physician, Orthopedics] Jeanine Ochoa APRN [Primary Care Provider, [facility]] Discharge Medications: New doxycycline hyclate 100 mg tablet 100 mg PO BID Qty: 20 0RF Xarelto 10 mg tablet 10 mg PO DAILY Qty: 20 0RF Rx Instructions: 20 days then switch to aspirin hydrocodone-acetaminophen 5-325 mg tablet 1 tablet PO Q4H PRN (Reason: pain) Qty: 30 0RF Continued multivitamin Tablet 1 tablet PO DAILY triamcinolone acetonide 0.1 % cream 1 applic topical DAILY PRN (Reason: VAGINAL RASH) lisinopril 40 mg tablet 40 mg PO DAILY Qty: 90 3RF famotidine 40 mg tablet 40 mg PO DAILY PRN (Reason: indigestion) Qty: 30 0RF atorvastatin 20 mg tablet 10 mg PO DAILY solifenacin 5 mg tablet 5 mg PO DAILY Gemtesa 75 mg tablet 75 mg PO DAILY Qty: 90 0RF amlodipine 10 mg tablet 5 mg PO DAILY omeprazole 40 mg capsule,delayed release(DR/EC) 40 mg PO DAILY Qty: 90 2RF tramadol 50 mg tablet 50 mg PO Q6H PRN (Reason: pain) Qty: 30 5RF hydrochlorothiazide 25 mg tablet 25 mg PO DAILY Qty: 30 0RF Discontinued meloxicam 15 mg tablet 15 mg PO DAILY Qty: 90 3RF Date of admission: 03/23/25 10:15 Primary Care Provider: Jeanine Ochoa Admitting Provider: Mnedel Henriquez Attending physician on admission: Mendel Henriquez Condition: Improved
== END 2025-03-24 18:17 | disposition home health service (06) | DRG 470 ==
LOC: ANHSURGERY 13:08 → ANH2MED 13:08
PROVIDERS: Student in an Organized Health Care Education/Training Program; Admitting Provider Orthopaedic Surgery; PCP Nurse Practitioner Family; Visit Provider Orthopaedic Surgery
PROC: 0SR902A Replacement of Right Hip Joint with Metal on Polyethylene Synthetic Substitute, Uncemented, Open Approach (ICD-10-PCS; CPT 27130; principal; 2025-03-22 07:30)
DX: M16.11 Unilateral primary osteoarthritis, right hip (principal); I48.20 Chronic atrial fibrillation, unspecified; I10 Essential (primary) hypertension; K21.9 Gastro-esophageal reflux disease without esophagitis; E78.00 Pure hypercholesterolemia, unspecified; M81.0 Age-related osteoporosis without current pathological fracture; Z96.651 Presence of right artificial knee joint
CPT/HCPCS: 36415; 80048; 80053; 81001; 85025; 85027; 97110; 97116; 97161; 97166; 97530; 97535; 99199; J0690; A9270; C1776; J1100; J1171; J2003; J2270; J2371; J2405; J2704; J3010; J3290; J3373; J7050; J7120